=== PATIENT | male | born 1960 | race African-American/Black ===

== ENCOUNTER 2016-04-11 03:23 | Emergency (ER) | payer OTHER ==
[2016-04-11 04:31] LABS: Hematocrit 42 % (42-52); Mean Corpuscular HGB Conc 33 g/dl (31-36); Mean Corpuscular Hemoglobin 30 pg (27-31); Mean Corpuscular Volume 90 fL (80-94); Mean Platelet Volume 8 um3 (7.4-10.4); Red Cell Distribution Width 14 % (10.5-15); White Blood Count 9.2 10^3/ul (3.5-10.8)
[2016-04-11 04:42] LABS: BUN/Creatinine Ratio 12.3 (8-20); Calcium 9.1 mg/dL (8.6-10.3); EGFR African American 68.3 (>60); EGFR Non-African American 53.1 (>60); Globulin 3.1 g/dL (2-4); Magnesium 2.1 mg/dL (1.9-2.7); Potassium 3.4 mmol/L (3.5-5.0); Total Bilirubin 0.3 mg/dL (0.2-1.0); Total Protein 7.1 g/dL (6.4-8.9)
[2016-04-11 04:45] LABS: Troponin I 0.01 ng/mL (<0.04)
[2016-04-11 04:52] LABS: TSH (Thyroid Stimulating Horm) 3.54 mcIU/mL (0.34-5.60)
[2016-04-11 05:16] LABS: Urine Bilirubin Negative (Negative); Urine Glucose Negative (Negative); Urine Nitrite Negative (Negative)
[2016-04-11] MEDS ORDERED: Ketorolac INJ* 30 MG/ML 1 ML VIAL IV PUSH ONE (05:27)
[2016-04-11] MEDS ORDERED: Ondansetron INJ* 2 MG/ML VIAL IV ONE (05:27)
[2016-04-11] MEDS ORDERED: NS 0.9% 1000 ML* 1,000 ML IV ONE (05:27)
--- NOTE | 2016-04-11 07:51 | ED ---
Malick Pineda SooYoung, scribed for Saurabh Lopes MD on 04/11/16 at 0532 . Syncope/Near Syncope - HPI Summary HPI Summary: A 55 Y/O M PRESENTS TO ED AFTER SYNCOPAL EPISODE ONSET 0300. ACCORDING TO FRIEND , PT COLLAPSED AFTER URINATING AT ABOUT 0300. HE FELL AGAIN AND HIT HIS HEAD. PT DENIES RECENT ILLNESS. HE HAS STARTED A NEW MEDICATION AND TOOK THE FIRST DOSE AT APPROX 1800 YESTERDAY. HE THEN WENT TO GYM AND DID CARDIO FOR APPROX 1 HOUR. HE LAST AT 1700. PT SEES DR. ESQUIVEL. ASSOCIATED SX: FEVER, CHILLS, BODY ACHES, MORA, NAUSEA/VOMITING. DENIES SOB, TINGLING/NUMBNESS. PERT PMHX: ENLARGED PROSTATE, HTN, OCCASIONAL PALPITATIONS. PMHX: CARDIAC CATHERIZATION. HE FLEW BACK FROM [place] ONE WEEK AGO. - History Of Current Complaint Chief Complaint: EDSyncope Time Seen by Provider: 04/11/16 03:41 Hx Obtained From: Patient, Family/Baseball Glove Stuffer Onset/Duration: Sudden Onset, Resolved Activity At Onset: At Rest - AFTER URINATING Associated Head Trauma: Yes Associated Signs And Symptoms: Headache, Vomiting, Other - NAUSEA, FEVER, CHILLS , BODY ACHES. NEG: SOB, TINGLING/NUMBNESS - Allergies/Home Medications Allergies/Adverse Reactions: Allergies Allergy/AdvReac Type Severity Reaction Status Date / Time Shellfish Allergy Allergy See Comment Verified 06/28/15 10:24 BETA BLOCKERS AdvReac Intermediate bradycardia Uncoded 06/19/15 10:19 PMH/Surg Hx/FS Hx/Imm Hx Previously Healthy: Yes Endocrine/Hematology History: Denies: Hx Diabetes, Hx Thyroid Disease Cardiovascular History: Reports: Hx Hypertension Denies: Hx Pacemaker/ICD Respiratory History: Reports: Hx Asthma Denies: Hx Chronic Obstructive Pulmonary Disease (COPD) GI History: Denies: Hx Ulcer Sensory History: Denies: Hx Hearing Aid Neurological History: Reports: Other Neuro Impairments/Disorders - 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 Psychiatric History: Denies: Hx Panic Disorder - Surgical History Surgery Procedure, Year, and Place: CARDIAC CATH- 2004, Infectious Disease History: No Infectious Disease History: Denies: Hx Clostridium Difficile, Hx Hepatitis, Hx Human Immunodeficiency Virus (HIV), Hx Shingles, Hx Tuberculosis, Traveled Outside the [place] in Last 30 Days - Social History Occupation: Employed Full-time Lives: With Family - FRIEND Alcohol Use: None Hx Substance Use: No Substance Use Type: Reports: None Hx Tobacco Use: No Smoking Status (MU): Never Smoked Tobacco Review of Systems Positive: Fever, Chills Negative: Erythema Negative: Sore Throat Negative: Chest Pain Negative: Shortness Of Breath, Cough Positive: Vomiting, Nausea. Negative: Abdominal Pain Negative: dysuria, hematuria Positive: Myalgia - GENERAL BODY ACHES. Negative: Edema Negative: Rash Neurological: Other - NEG: DIZZINESS Positive: Headache, Syncope. Negative: Numbness All Other Systems Reviewed And Are Negative: Yes Physical Exam - Summary Physical Exam Summary: Constitutional: Well-developed, Well-nourished, Alert. (-) Distressed Skin: Warm, Dry HENT: Normocephalic; Atraumatic Eyes: Conjunctiva normal Neck: Musculoskeletal ROM normal neck. (-) JVD, (-) Stridor, (-) Tracheal deviation Cardio: Rhythm regular, rate normal, Heart sounds normal; Intact distal pulses; The pedal pulses are 2+ and symmetric. Radial pulses are 2+ and symmetric. (-) Murmur Pulmonary/Chest wall: Effort normal. (-) Respiratory distress, (-) Wheezes, (-) Rales Abd: Soft, (-) Tenderness, (-) Distension, (-) Guarding, (-) Rebound Musculoskeletal: (-) Edema Lymph: (-) Cervical adenopathy Neuro: Alert, Oriented x3 Psych: Mood and affect Normal Triage Information Reviewed: Yes Vital Signs On Initial Exam: Initial Vitals Temp Pulse Resp BP Pulse Ox 96.3 F 66 17 129/108 100 04/11/16 03:34 04/11/16 03:34 04/11/16 03:34 04/11/16 03:34 04/11/16 03:34 Vital Signs Reviewed: Yes Diagnostics - Vital Signs Vital Signs Temp Pulse Resp BP Pulse Ox 04/11/16 03:34 96.3 F 66 17 129/108 100 - Laboratory Lab Results: Lab Results 04/11/16 04/11/16 04/11/16 Range/Units 03:55 03:55 03:55 WBC 9.2 (3.5-10.8) 10^3/ul RBC 4.70 (4.0-5.4) 10^6/ul Hgb 14.0 (14.0-18.0) g/dl Hct 42 (42-52) % MCV 90 (80-94) fL MCH 30 (27-31) pg MCHC 33 (31-36) g/dl RDW 14 (10.5-15) % Plt Count 191 (150-450) 10^3/ul MPV 8 (7.4-10.4) um3 Neut % (Auto) 42.8 (38-83) % Lymph % (Auto) 43.6 (25-47) % [place] % (Auto) 9.3 H (1-9) % Eos % (Auto) 4.0 (0-6) % Baso % (Auto) 0.3 (0-2) % Absolute Neuts (auto) 4.0 (1.5-7.7) 10^3/ul Absolute Lymphs (auto) 4.0 (1.0-4.8) 10^3/ul Absolute Monos (auto) 0.9 H (0-0.8) 10^3/ul Absolute Eos (auto) 0.4 (0-0.6) 10^3/ul Absolute Basos (auto) 0 (0-0.2) 10^3/ul Absolute Nucleated RBC 0.02 10^3/ul Nucleated RBC % 0.3 Sodium 136 (133-145) mmol/L Potassium 3.4 L (3.5-5.0) mmol/L Chloride 103 (101-111) mmol/L Carbon Dioxide 24 (22-32) mmol/L Anion Gap 9 (2-11) mmol/L BUN 17 (6-24) mg/dL Creatinine 1.38 H (0.67-1.17) mg/dL Est GFR ( Amer) 68.3 (>60) Est GFR (Non-Af Amer) 53.1 (>60) BUN/Creatinine Ratio 12.3 (8-20) Glucose 186 H (70-100) mg/dL Lactic Acid 2.6 H* (0.5-2.0) mmol/L Calcium 9.1 (8.6-10.3) mg/dL Magnesium 2.1 (1.9-2.7) mg/dL Total Bilirubin 0.30 (0.2-1.0) mg/dL AST 21 (13-39) U/L ALT 21 (7-52) U/L Alkaline Phosphatase 55 (34-104) U/L Troponin I 0.01 (<0.04) ng/mL Total Protein 7.1 (6.4-8.9) g/dL Albumin 4.0 (3.2-5.2) g/dL Globulin 3.1 (2-4) g/dL Albumin/Globulin Ratio 1.3 (1-3) TSH 3.54 (0.34-5.60) mcIU/mL Urine Color Urine Appearance Urine pH (5-9) Ur Specific [place] (1.010-1.030) Urine Protein (Negative) Urine Ketones (Negative) Urine Blood (Negative) Urine Nitrate (Negative) Urine Bilirubin (Negative) Urine Urobilinogen (Negative) Ur Leukocyte Esterase (Negative) Urine Glucose (Negative) Urine Ascorbic Acid (Negative) 04/11/16 Range/Units 04:50 WBC (3.5-10.8) 10^3/ul RBC (4.0-5.4) 10^6/ul Hgb (14.0-18.0) g/dl Hct (42-52) % MCV (80-94) fL MCH (27-31) pg MCHC (31-36) g/dl RDW (10.5-15) % Plt Count (150-450) 10^3/ul MPV (7.4-10.4) um3 Neut % (Auto) (38-83) % Lymph % (Auto) (25-47) % [place] % (Auto) (1-9) % Eos % (Auto) (0-6) % Baso % (Auto) (0-2) % Absolute Neuts (auto) (1.5-7.7) 10^3/ul Absolute Lymphs (auto) (1.0-4.8) 10^3/ul Absolute Monos (auto) (0-0.8) 10^3/ul Absolute Eos (auto) (0-0.6) 10^3/ul Absolute Basos (auto) (0-0.2) 10^3/ul Absolute Nucleated RBC 10^3/ul Nucleated RBC % Sodium (133-145) mmol/L Potassium (3.5-5.0) mmol/L Chloride (101-111) mmol/L Carbon Dioxide (22-32) mmol/L Anion Gap (2-11) mmol/L BUN (6-24) mg/dL Creatinine (0.67-1.17) mg/dL Est GFR ( Amer) (>60) Est GFR (Non-Af Amer) (>60) BUN/Creatinine Ratio (8-20) Glucose (70-100) mg/dL Lactic Acid (0.5-2.0) mmol/L Calcium (8.6-10.3) mg/dL Magnesium (1.9-2.7) mg/dL Total Bilirubin (0.2-1.0) mg/dL AST (13-39) U/L ALT (7-52) U/L Alkaline Phosphatase (34-104) U/L Troponin I (<0.04) ng/mL Total Protein (6.4-8.9) g/dL Albumin (3.2-5.2) g/dL Globulin (2-4) g/dL Albumin/Globulin Ratio (1-3) TSH (0.34-5.60) mcIU/mL Urine Color Yellow Urine Appearance Clear Urine pH 5.0 (5-9) Ur Specific [place] 1.018 (1.010-1.030) Urine Protein Negative (Negative) Urine Ketones Negative (Negative) Urine Blood Negative (Negative) Urine Nitrate Negative (Negative) Urine Bilirubin Negative (Negative) Urine Urobilinogen Negative (Negative) Ur Leukocyte Esterase Negative (Negative) Urine Glucose Negative (Negative) Urine Ascorbic Acid * H (Negative) Result Diagrams: 04/11/16 03:55 04/11/16 03:55 Lab Statement: Any lab studies that have been ordered have been reviewed, and results considered in the medical decision making process. Course/Dx - Diagnoses Provider Diagnoses: Micturition syncope - Physician Notifications Discussed Care Of Patient With: dr riggs, he will f/u EKG/troponin. If repeat EKG/troponin neg and no sx, recc discharge, discontinue alpha renée Discharge - Discharge Plan Condition: Stable Disposition: OTHER Discharge Disposition Comment: signed out to dr. riggs pending repeat troponin/ EKG The documentation as recorded by the Malick viveros SooYoung accurately reflects the service I personally performed and the decisions made by , Saurabh Lopes MD.
--- NOTE | 2016-04-11 07:54 | RAD ---
Indication: Syncope. CT of the brain was performed without IV contrast. Ventricular structures are midline. No midline shift is noted. The extraction spaces are unremarkable. There is no evidence of intracranial mass or hemorrhage. No other high or low density lesions are identified. The bony calvaria, mastoid air cells and paranasal sinuses are otherwise unremarkable. IMPRESSION: There is no intracranial mass or hemorrhage noted.
[2016-04-11 09:41] VITALS: BP 128/62
--- NOTE | 2016-04-12 07:54 | CONSULT ---
Consult Consult: Mr. Salazar was turned over to me by Dr. Lopes at change of shift awaiting a second troponin after a syncopal episode. The trop was negative and he reported no C/O to me. He felt fine and was relieved to be going home. He was discharged in stable condition.
== END 2016-04-11 09:40 ==
LOC: ED 03:23
DX: R55 Syncope and collapse (principal); R51 Headache; R11.2 Nausea with vomiting, unspecified; R50.9 Fever, unspecified
CPT/HCPCS: 36415; 70450; 80053; 81003; 83605; 83735; 84443; 84484; 85025; 87502; 93005; 96374; 96375; 99282; J1885; J2405

== ENCOUNTER 2016-12-16 07:55 | Emergency (ER) | payer OTHER ==
[2016-12-16] MEDS ORDERED: Aspirin Low Dose CHEW TAB* 81 MG PO ONE (08:13)
--- NOTE | 2016-12-16 08:41 | RAD ---
HISTORY: High heart rate, weakness COMPARISONS: December 08, 2009 VIEWS: 1: frontal portable view of the chest at 8:30 AM FINDINGS: LINES AND TUBES: None. CARDIOMEDIASTINAL SILHOUETTE: The cardiomediastinal silhouette is normal for portable technique. PLEURA: The costophrenic angles are sharp. No pleural abnormalities are noted. LUNG PARENCHYMA: The lungs are clear. ABDOMEN: The upper abdomen is clear. There is no subphrenic gas. BONES AND SOFT TISSUES: No bone or soft tissue abnormalities are noted. IMPRESSION: NO ACTIVE CARDIOPULMONARY DISEASE.
[2016-12-16 09:02] LABS: Hematocrit 44 % (42-52); Hemoglobin 14.7 g/dl (14.0-18.0); Mean Corpuscular HGB Conc 34 g/dl (31-36); Mean Corpuscular Hemoglobin 30 pg (27-31); Mean Corpuscular Volume 89 fL (80-94); Mean Platelet Volume 8 um3 (7.4-10.4); Red Blood Count 4.89 10^6/ul (4.0-5.4); Red Cell Distribution Width 14 % (10.5-15); White Blood Count 8.7 10^3/ul (3.5-10.8)
[2016-12-16 09:04] LABS: Comments Flag Yes
[2016-12-16 09:19] LABS: Albumin 4.2 g/dL (3.2-5.2); BUN/Creatinine Ratio 8.7 (8-20); Calcium 9.1 mg/dL (8.6-10.3); EGFR African American 68.1 (>60); EGFR Non-African American 52.9 (>60); Globulin 3.2 g/dL (2-4); Potassium 3.7 mmol/L (3.5-5.0); Total Bilirubin 0.6 mg/dL (0.2-1.0); Total Protein 7.4 g/dL (6.4-8.9)
[2016-12-16 10:12] LABS: Urine Bilirubin Negative (Negative); Urine Glucose Negative (Negative); Urine Nitrite Negative (Negative)
[2016-12-16] MEDS ORDERED: Iodixanol* (CONTRAST) 320 MG/ML 100 ML SDV IV ONE (10:34)
--- NOTE | 2016-12-16 11:30 | RAD ---
INDICATION: Chest pain. Short of breath. Evaluate for pulmonary embolus. COMPARISON: Chest x-ray December 16, 2016 TECHNIQUE: Axial source images were obtained from the thoracic inlet to the hemidiaphragms following administration of [address] angiographic technique was utilized. Coronal and sagittal reconstructed images were acquired. CHEST FINDINGS: Neck/thyroid: The visualized neck to include the thyroid appear normal. Chest wall: There are no acute abnormalities of the bony thorax or chest wall. There is no supraclavicular, infraclavicular, or axillary lymphadenopathy. Lungs : There are no pulmonary parenchymal masses or infiltrates. The pulmonary interstitium appears normal. There are no endobronchial lesions. Cardiomediastinal structures: There is no CT evidence of acute pulmonary embolic disease. The heart is normal in size. There is no pericardial effusion. There is no evidence of aortic aneurysm or dissection. There is no mediastinal or hilar adenopathy. The esophagus appears normal. Pleura : There are no pleural-based masses or effusions. Other: None. IMPRESSION: NO CT EVIDENCE OF ACUTE PULMONARY EMBOLIC DISEASE. LUNGS CLEAR.
[2016-12-16 12:25] LABS: TSH (Thyroid Stimulating Horm) 1.82 mcIU/mL (0.34-5.60)
[2016-12-16 12:32] LABS: Free T4 0.61 ng/dL (0.61-1.12)
[2016-12-16] MEDS ORDERED: NS 0.9% 1000 ML* 1,000 ML IV ONE (13:43)
[2016-12-16 15:20] VITALS: BP 135/74
[2016-12-17 23:07] LABS: B garinii/B afzelii PCR Negative (Negative); B mayonii PCR Negative (Negative)
--- NOTE | 2016-12-19 08:52 | PN ---
Progress Note - Progress Note Date of Service: 12/17/16 Note: Stool culture to grown Campylobacter Jejuni Patient was not placed on medication prior to discharge, as we were awaiting results Patient is called and left message ta 8:45am on 12/19/16 informing of results and prescription Levaquin 500mg daily for 5 days sent to his pharmacy Nothing further at this time. Barb Mendez PA-C
--- NOTE | 2016-12-19 14:52 | ED ---
Jessica Pineda Thomas, scribed for Saurabh Lopes MD on 12/16/16 at 0817 . Palpitations / Dysrhythmia - HPI Summary HPI Summary: The pt is a 56 y/o M presenting to the ED c/o palpitations characterized as fast that began this AM. Pt additionally c/o generalized malaise (onset yesterday), nausea, diarrhea (yesterday), neck pain (from a crook in my neck when I slept), and arthralgia. The patient did not sleep well last night. Pt denies CP, SOB, dizziness, lightheadedness, F/S/C, sore throat, leg pain, and leg swelling. He has been eating and drinking well. He has a Hx of a herniated disc on the right side and he is on physical therapy. He is on Diltiazem for HTN and his dose was recently decreased about a month ago. He has been taking his medication as directed. He says that his medication makes him chronically unsteady on his feet. The patient says that is not under significant stress and he does not have a history of panic attacks. However, per his partner, he does get anxious. He is accompanied by his partner Hayden. His private tutors and teachers is Dr. Almaguer and his urologist is Dr. Latham. 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 He travelled two weeks ago. He does not have a Hx of DVT. He denies tick bites - History of Current Complaint Chief Complaint: EDDysrhythmPalp Hx Obtained From: Patient, Family/Shovel Operator - partner Hayden is in the room Onset/Duration: Lasting Hours - onset this AM, Still Present Timing: Constant Character: Fast Aggravating: Nothing Alleviating: Nothing - Allergy/Home Medications Allergies/Adverse Reactions: Allergies Allergy/AdvReac Type Severity Reaction Status Date / Time Shellfish Allergy Allergy See Comment Verified 06/28/15 10:24 BETA BLOCKERS AdvReac Intermediate bradycardia Uncoded 06/19/15 10:19 PMH/Surg Hx/FS Hx/Imm Hx Previously Healthy: No Endocrine/Hematology History: Denies: Hx Diabetes, Hx Thyroid Disease Cardiovascular History: Reports: Hx Hypertension Denies: Hx Pacemaker/ICD Respiratory History: Reports: Hx Asthma Denies: Hx Chronic Obstructive Pulmonary Disease (COPD) GI History: Denies: Hx Ulcer Sensory History: Denies: Hx Hearing Aid Neurological History: Reports: Other Neuro Impairments/Disorders - 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 Psychiatric History: Denies: Hx Panic Disorder - Surgical History Surgery Procedure, Year, and Place: CARDIAC CATH- 2004, Infectious Disease History: No Infectious Disease History: Denies: Hx Clostridium Difficile, Hx Hepatitis, Hx Human Immunodeficiency Virus (HIV), Hx Shingles, Hx Tuberculosis, Traveled Outside the [place] in Last 30 Days - Family History Known Family History: Positive: Diabetes - Social History Alcohol Use: None Hx Substance Use: No Substance Use Type: Reports: None Hx Tobacco Use: No Smoking Status (MU): Never Smoked Tobacco Review of Systems Positive: Other - Generalized malaise (onset yesterday). Negative: Fever, Chills, Skin Diaphoresis Negative: Erythema - eyes Negative: Sore Throat Positive: Palpitations - characterized as fast that began this AM. Negative: Chest Pain Negative: Shortness Of Breath, Cough Positive: Diarrhea - yesterday, Nausea. Negative: Abdominal Pain, Vomiting Negative: discharge, hematuria Positive: Arthralgia, Other - Neck pain ("from a crook in my neck"); NEGATIVE: leg pain. Negative: Myalgia, Edema - legs Negative: Rash Neurological: Other - NEGATIVE: dizziness, lightheadedness All Other Systems Reviewed And Are Negative: Yes Physical Exam - Summary Physical Exam Summary: Constitutional: Well-developed, Well-nourished, Alert. (-) Distressed Skin: Warm, Dry HENT: Normocephalic; Atraumatic Eyes: Conjunctiva normal Neck: Musculoskeletal ROM normal neck. (-) JVD, (-) Stridor, (-) Tracheal deviation Cardio: Rhythm regular, rate normal, Heart sounds normal; Intact distal pulses; The pedal pulses are 2+ and symmetric. Radial pulses are 2+ and symmetric. (-) Murmur Pulmonary/Chest wall: Effort normal. (-) Respiratory distress, (-) Wheezes, (-) Rales Abd: Soft, (-) Tenderness, (-) Distension, (-) Guarding, (-) Rebound Musculoskeletal: (-) Edema Lymph: (-) Cervical adenopathy Neuro: Alert, Oriented x3 Psych: Mood and affect Normal Triage Information Reviewed: Yes Vital Signs On Initial Exam: Initial Vitals Temp Pulse Resp BP Pulse Ox 98.2 F 107 20 151/83 98 12/16/16 07:56 12/16/16 07:56 12/16/16 07:56 12/16/16 07:56 12/16/16 07:56 Vital Signs Reviewed: Yes - [place] Coma Scale Coma Scale Total: 15 Diagnostics - Vital Signs Vital Signs Temp Pulse Resp BP Pulse Ox 12/16/16 08:05 94 14 99 12/16/16 08:04 130/85 12/16/16 07:56 98.2 F 107 20 151/83 98 - Laboratory Result Diagrams: 12/16/16 08:39 12/16/16 08:39 Lab Statement: Any lab studies that have been ordered have been reviewed, and results considered in the medical decision making process. - Radiology CXR Xray Interpretation: No Acute Changes - CXR shows no active cardiopulmonary disease. ED physician has reviewed this radiology report and agrees. Radiology Interpretation Completed By: Radiologist - CT CTA Chest CT Interpretation: No Acute Changes - NO CT EVIDENCE OF ACUTE PULMONARY EMBOLIC DISEASE. LUNGS CLEAR. ED physician has reviewed this radiology report and agrees. CT Interpretation Completed By: Radiologist - EKG 08:19 Cardiac Rate: NL - 93 BPM EKG Interpretation: Sinus rhythm. No STEMI. No ectopy. Re-Evaluation - Re-Evaluation First Eval Re-Evaluation Time: 13:49 Change: Unchanged Comment: The patient noticed his heart racing when he stands up. Therefore, we will give him some IV fluids. Second Eval Re-Evaluation Time: 15:30 Change: Improved Comment: The patient is no longer orthostatic. Course/Dx - Course Assessment/Plan: The pt is a 56 y/o M presenting to the ED c/o palpitations characterized as fast that began this AM. Pt additionally c/o generalized malaise (onset yesterday), nausea, diarrhea (yesterday), neck pain (from a crook in my neck when I slept), and arthralgia. The patient did not sleep well last night. Pt denies CP, SOB, dizziness, lightheadedness, F/S/C, sore throat, leg pain, and leg swelling. He has been eating and drinking well. He has a Hx of a herniated disc on the right side and he is on physical therapy. He is on Diltiazem for HTN and his dose was recently decreased about a month ago. He has been taking his medication as directed. He says that his medication makes him chronically unsteady on his feet. The patient says that is not under significant stress and he does not have a history of panic attacks. However, per his partner, he does get anxious. He is accompanied by his partner Hayden. His private tutors and teachers is Dr. Almaguer and his urologist is Dr. Latham. 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 He travelled two weeks ago. He does not have a Hx of DVT. He denies tick bites. At re-evaluation at 13 :45, the patient noticed his heart racing when he stands up. Therefore, we will give him some IV fluids. At re-evaluatoin at 15:30, the patient is no longer orthostatic. In the ED course the patient was given ASA. Bloodwork shows D- dimer 242, creatinine 1.38, troponin 0.00. UA is negative. EKG at 08:19 shows sinus rhythm at 93 BPM, no STEMI, no ectopy. CXR shows no active cardiopulmonary disease. CTA chest shows NO CT EVIDENCE OF ACUTE PULMONARY EMBOLIC DISEASE. LUNGS CLEAR. ED physician has reviewed this radiology report and agrees. Patient is diagnosed with diarrhea, dehydration, and viral syndrome. Patient will be discharged home with follow up by PCP in two days. Patient is agreeable to this plan. - Diagnoses Provider Diagnoses: Diarrhea, Dehydration, Viral syndrome Discharge - Discharge Plan Condition: Stable Disposition: HOME Patient Education Materials: Acute Diarrhea (ED), Dehydration (ED), Viral Syndrome (ED) Referrals: Orlando Branch MD [Primary Care Provider] - 2 Days Additional Instructions: Follup up with your primary care provider in 2-3 days. Return to the emergency department for any changing or worsening symptoms. The documentation as recorded by the Jessica viveros Thomas accurately reflects the service I personally performed and the decisions made by me, Saurabh Lopes MD.
== END 2016-12-16 15:41 | disposition home or self-care (01) ==
LOC: ED 07:55
DX: R19.7 Diarrhea, unspecified (principal); E86.0 Dehydration; B34.9 Viral infection, unspecified; R00.2 Palpitations
CPT/HCPCS: 36415; 71010; 71275; 80053; 81003; 83605; 84439; 84443; 84484; 85025; 85379; 87045; 87046; 87077; 87476; 87502; 87798; 87899; 93005; 99283; A9270-GY; Q9967

== ENCOUNTER 2017-09-03 12:01 | Emergency (ER) | payer OTHER ==
[2017-09-03 12:52] LABS: ABS Basophils 0.1 10^3/ul (0-0.2); ABS Eosinophils 0.2 10^3/ul (0-0.6); ABS Lymphocytes 1.9 10^3/ul (1.0-4.8); ABS Monocytes 0.6 10^3/ul (0-0.8); ABS Neutrophils 2.5 10^3/ul (1.5-7.7); ABS Nucleated RBC 0 10^3/ul; Eosinophil % 4.3 % (0-6); Hematocrit 45 % (42-52); Hemoglobin 15.3 g/dl (14.0-18.0); Mean Corpuscular HGB Conc 34 g/dl (31-36); Mean Corpuscular Hemoglobin 30 pg (27-31); Mean Corpuscular Volume 88 fL (80-94); Mean Platelet Volume 7.9 um3 (7.4-10.4); Nucleated Red Blood Cells % 0.1; Platelet Count 204 10^3/ul (150-450); Red Blood Count 5.08 10^6/ul (4.00-5.40); Red Cell Distribution Width 14 % (10.5-15); White Blood Count 5.3 10^3/ul (3.5-10.8)
[2017-09-03 13:10] LABS: EGFR Non-African American 53.2 (>60)
[2017-09-03 13:16] LABS: Urine Appearance Clear; Urine Blood Negative (Negative); Urine Color Yellow; Urine Ketones Negative (Negative); Urine Protein 1+(30 mg/dL) (Negative); Urine Specific Gravity 1.016 (1.010-1.030); Urine Urobilinogen Negative (Negative)
--- NOTE | 2017-09-03 13:59 | RAD ---
INDICATION: Chest pain, tachycardia. Asthma. COMPARISON: December 16, 2016 CT. TECHNIQUE: Dual energy PA and routine lateral views of the chest were obtained. REPORT: No focal pulmonary lesion, compelling alveolar consolidation, pleural effusion, pneumothorax. The heart, pulmonary vasculature, and mediastinal contours are unremarkable. Unremarkable soft tissue contours and osseous structures. IMPRESSION: No evidence for acute intrathoracic disease.
[2017-09-03 14:28] VITALS: BP 133/77
--- NOTE | 2017-09-03 16:23 | ED ---
Rodrigo Pineda Stephanie, scribed for Víctor Christianson MD on 09/03/17 at 1232 . HPI Cardiac - HPI Summary HPI Summary: The pt is a 57 y/o M presenting to the ED with c/o rapid HR that began a few days ago. He states his HR elevated to 137 BPM when he walks but decreases when he is at rest. He denies N/V, lightheadedness, SOB and CP. - History of Current Complaint Chief Complaint: EDDysrhythmPalp Stated Complaint: RAPID HEART RATE Time Seen by Provider: 09/03/17 12:19 Hx Obtained From: Patient Onset/Duration: Started Days Ago, Still Present Timing: Intermittent Current Severity: Mild Pain Intensity: 3 Pain Scale Used: 0-10 Numeric Chest Pain Radiates: No Character: Fast Aggravating Factor(s): Exertion Alleviating Factor(s): Rest Associated Signs and Symptoms: Negative: Chest Pain, Shortness of Breath, Lightheadedness, Nausea, Vomiting - Allergy/Home Medications Allergies/Adverse Reactions: Allergies Allergy/AdvReac Type Severity Reaction Status Date / Time shellfish derived Allergy Itching Verified 09/03/17 12:15 beta renée Allergy Bradycardia Uncoded 09/03/17 12:15 Home Medications: Home Medications Aspirin EC TAB* [Ecotrin EC Low Dose 81 MG*] 81 mg PO DAILY 09/03/17 [History Confirmed 09/03/17] Cranberry [Cranberry] 400 mg PO DAILY 09/03/17 [History Confirmed 09/03/17] Diltiazem CD CAP* [Cardizem CD CAP*] 180 mg PO DAILY 09/03/17 [History Confirmed 09/03/17] Multivitamins/Minerals TAB* [Theragran/minerals TAB*] 1 tab PO DAILY 09/03/17 [ History Confirmed 09/03/17] Moody-3 Fatty Acids (Nf) [Fish Oil (NF)] 1,000 mg PO DAILY 09/03/17 [History Confirmed 09/03/17] Potassium Chlor TAB* [Klor Con ER TAB*] 20 meq PO DAILY 09/03/17 [History Confirmed 09/03/17] Ubidecarenone [Coq10] 100 mg PO DAILY 09/03/17 [History Confirmed 09/03/17] Valsartan TAB* [Diovan TAB*] 160 mg PO DAILY 09/03/17 [History Confirmed ] PMH/Surg Hx/FS Hx/Imm Hx Endocrine/Hematology History: Denies: Hx Diabetes, Hx Thyroid Disease Cardiovascular History: Reports: Hx Hypertension Denies: Hx Pacemaker/ICD Respiratory History: Reports: Hx Asthma Denies: Hx Chronic Obstructive Pulmonary Disease (COPD) GI History: Denies: Hx Ulcer History: Denies: Hx Renal Disease Sensory History: Denies: Hx Hearing Aid Neurological History: Reports: Other Neuro Impairments/Disorders - 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 Psychiatric History: Denies: Hx Panic Disorder - Surgical History Surgery Procedure, Year, and Place: CARDIAC CATH- 2004, Infectious Disease History: No Infectious Disease History: Denies: Hx Clostridium Difficile, Hx Hepatitis, Hx Human Immunodeficiency Virus (HIV), Hx Shingles, Hx Tuberculosis, Traveled Outside the [place] in Last 30 Days - Family History Known Family History: Negative: Renal Disease - Social History Occupation: Employed Full-time Lives: Alone Alcohol Use: None Hx Substance Use: No Substance Use Type: Reports: None Hx Tobacco Use: No Smoking Status (MU): Never Smoked Tobacco Have You Smoked in the Last Year: No Review of Systems Negative: Fever Positive: Other - rapid HR. Negative: Chest Pain Negative: Shortness Of Breath Negative: Vomiting, Nausea Neurological: Negative - lightheadedness All Other Systems Reviewed And Are Negative: Yes Physical Exam - Summary Physical Exam Summary: VITAL SIGNS: Reviewed. GENERAL: Patient is a well-developed and nourished MALE who is lying comfortable in the stretcher. Patient is not in any acute respiratory distress. HEAD AND FACE: No signs of trauma. No ecchymosis, hematomas or skull depressions. No sinus tenderness. EYES: PERRLA, EOMI x 2, No injected conjunctiva, no nystagmus. EARS: Hearing grossly intact. Ear canals and tympanic membranes are within normal limits. MOUTH: Oropharynx within normal limits. NECK: Supple, trachea is midline, no adenopathy, no JVD, no carotid bruit, no c- spine tenderness, neck with full ROM. CHEST: Symmetric, no tenderness at palpation LUNGS: Clear to auscultation bilaterally. No wheezing or crackles. CVS: Regular rate and rhythm, S1 and S2 present, no murmurs or gallops appreciated. ABDOMEN: Soft, non-tender. No signs of distention. No rebound no guarding, and no masses palpated. Bowel sounds are normal. EXTREMITIES: FROM in all major joints, no edema, no cyanosis or clubbing. NEURO: Alert and oriented x 3. No acute neurological deficits. Speech is normal and follows commands. SKIN: Dry and warm Triage Information Reviewed: Yes Vital Signs On Initial Exam: Initial Vitals Temp Pulse Resp BP Pulse Ox 97.5 F 91 16 149/96 96 09/03/17 12:11 09/03/17 12:11 09/03/17 12:11 09/03/17 12:11 09/03/17 12:11 Vital Signs Reviewed: Yes Diagnostics - Vital Signs Vital Signs Temp Pulse Resp BP Pulse Ox 09/03/17 12:11 97.5 F 91 16 149/96 96 - Laboratory Lab Results: Lab Results 09/03/17 09/03/17 09/03/17 Range/Units 12:46 12:46 12:46 WBC 5.3 (3.5-10.8) 10^3/ul RBC 5.08 (4.00-5.40) 10^6/ul Hgb 15.3 (14.0-18.0) g/dl Hct 45 (42-52) % MCV 88 (80-94) fL MCH 30 (27-31) pg MCHC 34 (31-36) g/dl RDW 14 (10.5-15) % Plt Count 204 (150-450) 10^3/ul MPV 7.9 (7.4-10.4) um3 Neut % (Auto) 46.9 (38-83) % Lymph % (Auto) 37.0 (25-47) % [place] % (Auto) 10.8 H (0-7) % Eos % (Auto) 4.3 (0-6) % Baso % (Auto) 1.0 (0-2) % Absolute Neuts (auto) 2.5 (1.5-7.7) 10^3/ul Absolute Lymphs (auto) 1.9 (1.0-4.8) 10^3/ul Absolute Monos (auto) 0.6 (0-0.8) 10^3/ul Absolute Eos (auto) 0.2 (0-0.6) 10^3/ul Absolute Basos (auto) 0.1 (0-0.2) 10^3/ul Absolute Nucleated RBC 0 10^3/ul Nucleated RBC % 0.1 D-Dimer, Quantitative (Less Than 230) ng/mL Sodium 139 (139-145) mmol/L Potassium 3.6 (3.5-5.0) mmol/L Chloride 104 (101-111) mmol/L Carbon Dioxide 29 (22-32) mmol/L Anion Gap 6 (2-11) mmol/L BUN 12 (6-24) mg/dL Creatinine 1.37 H (0.67-1.17) mg/dL Est GFR ( Amer) 68.4 (>60) Est GFR (Non-Af Amer) 53.2 (>60) BUN/Creatinine Ratio 8.8 (8-20) Glucose 151 H (70-100) mg/dL Lactic Acid 1.4 (0.5-2.0) mmol/L Calcium 9.4 (8.6-10.3) mg/dL Magnesium 2.3 (1.9-2.7) mg/dL Total Bilirubin 0.40 (0.2-1.0) mg/dL AST 23 (13-39) U/L ALT 21 (7-52) U/L Alkaline Phosphatase 76 (34-104) U/L CK-MB (CK-2) 2.7 (0.6-6.3) ng/mL Troponin I 0.00 (<0.04) ng/mL Total Protein 7.5 (6.4-8.9) g/dL Albumin 4.0 (3.2-5.2) g/dL Globulin 3.5 (2-4) g/dL Albumin/Globulin Ratio 1.1 (1-3) TSH 2.95 (0.34-5.60) mcIU/mL Urine Color Urine Appearance Urine pH (5-9) Ur Specific [place] (1.010-1.030) Urine Protein (Negative) Urine Ketones (Negative) Urine Blood (Negative) Urine Nitrate (Negative) Urine Bilirubin (Negative) Urine Urobilinogen (Negative) Ur Leukocyte Esterase (Negative) Urine WBC (Auto) (Absent) Urine RBC (Auto) (Absent) Urine Bacteria (Absent) Urine Glucose (Negative) 09/03/17 09/03/17 Range/Units 12:46 13:05 WBC (3.5-10.8) 10^3/ul RBC (4.00-5.40) 10^6/ul Hgb (14.0-18.0) g/dl Hct (42-52) % MCV (80-94) fL MCH (27-31) pg MCHC (31-36) g/dl RDW (10.5-15) % Plt Count (150-450) 10^3/ul MPV (7.4-10.4) um3 Neut % (Auto) (38-83) % Lymph % (Auto) (25-47) % [place] % (Auto) (0-7) % Eos % (Auto) (0-6) % Baso % (Auto) (0-2) % Absolute Neuts (auto) (1.5-7.7) 10^3/ul Absolute Lymphs (auto) (1.0-4.8) 10^3/ul Absolute Monos (auto) (0-0.8) 10^3/ul Absolute Eos (auto) (0-0.6) 10^3/ul Absolute Basos (auto) (0-0.2) 10^3/ul Absolute Nucleated RBC 10^3/ul Nucleated RBC % D-Dimer, Quantitative < 200 (Less Than 230) ng/mL Sodium (139-145) mmol/L Potassium (3.5-5.0) mmol/L Chloride (101-111) mmol/L Carbon Dioxide (22-32) mmol/L Anion Gap (2-11) mmol/L BUN (6-24) mg/dL Creatinine (0.67-1.17) mg/dL Est GFR ( Amer) (>60) Est GFR (Non-Af Amer) (>60) BUN/Creatinine Ratio (8-20) Glucose (70-100) mg/dL Lactic Acid (0.5-2.0) mmol/L Calcium (8.6-10.3) mg/dL Magnesium (1.9-2.7) mg/dL Total Bilirubin (0.2-1.0) mg/dL AST (13-39) U/L ALT (7-52) U/L Alkaline Phosphatase (34-104) U/L CK-MB (CK-2) (0.6-6.3) ng/mL Troponin I (<0.04) ng/mL Total Protein (6.4-8.9) g/dL Albumin (3.2-5.2) g/dL Globulin (2-4) g/dL Albumin/Globulin Ratio (1-3) TSH (0.34-5.60) mcIU/mL Urine Color Yellow Urine Appearance Clear Urine pH 7.0 (5-9) Ur Specific [place] 1.016 (1.010-1.030) Urine Protein 1+(30 mg/dl) A (Negative) Urine Ketones Negative (Negative) Urine Blood Negative (Negative) Urine Nitrate Negative (Negative) Urine Bilirubin Negative (Negative) Urine Urobilinogen Negative (Negative) Ur Leukocyte Esterase Negative (Negative) Urine WBC (Auto) Absent (Absent) Urine RBC (Auto) Trace(0-2/hpf) (Absent) Urine Bacteria Absent (Absent) Urine Glucose Negative (Negative) Result Diagrams: 09/03/17 12:46 09/03/17 12:46 Lab Statement: Any lab studies that have been ordered have been reviewed, and results considered in the medical decision making process. - Radiology CXR Xray Interpretation: No Acute Changes Radiology Interpretation Completed By: Radiologist - No evidence for acute intrathoracic disease. ED physician has reviewed this report. - EKG 12:18 Cardiac Rate: NL EKG Rhythm: Sinus Rhythm - [address] Segment: Normal EKG Interpretation: no ST elevations EKG Comparison: No Significant Change - similar to 12/16/16 Disposition - Course Assessment/Plan: Blood tests without any significant abnormality. EKG is a normal sinus rhythm without any arrhythmia. TSH is normal. Since I did not find any abnormalities will be discharged the patient home with follow-up with PCP. Patient may benefit from a Holter monitor which will be provided with the PCP. I discussed all the findings and test results with the patient. Patient was instructed to return to the emergency room immediately if any of the symptoms return or worsens. Plan of care was discussed with the patient and understands and agrees. All questions were answered at patient satisfaction. There were no further complaints or concerns. Lung exam before discharge: CTA B /L. Good air exchange. No wheezing or crackles heard. CVS: S1 and S2 present. No murmurs appreciated. Patient is alert and oriented x 3. Patient is hemodynamically stable. Patient will be discharged home with follow up PCP in the next 2-3 days - Differential Dx - Cardiopulmonary Differential Diagnoses - Cardiopulmonary: Atrial Fibrillation, Atrial Flutter, Paroxysmal SVT, Paroxysmal VT - Diagnoses Provider Diagnoses: Palpitations Discharge - Sign-Out/Discharge Documenting (check all that apply): Discharge/Admit/Transfer - Discharge - Discharge Plan Condition: Stable Disposition: HOME Patient Education Materials: Heart Palpitations (ED) Referrals: Orlando Branch MD [Primary Care Provider] - 3 Days Additional Instructions: Return to the ED for new or worsening symptoms. - Billing Disposition and Condition Condition: STABLE Disposition: Home The documentation as recorded by the Rodrigo viveros Stephanie accurately reflects the service I personally performed and the decisions made by Sammy julio Walter, MD.
== END 2017-09-03 14:27 | disposition home or self-care (01) ==
LOC: ED 12:01
DX: R00.2 Palpitations (principal); I10 Essential (primary) hypertension
CPT/HCPCS: 36415; 71046; 80053; 81003; 81015; 82553; 83605; 83735; 84443; 84484; 85025; 85379; 93005; 99282

== ENCOUNTER 2018-08-30 19:16 | Emergency (ER) | payer OTHER ==
--- OUTSIDE RECORDS SUMMARY | 2018-08-30 19:34 | XMS REPORT | Continuity of Care Document ---
:1960 External Reference #:[id number] Author Name Jose J Weineritlyn Care Team Providers Name Role Phone Orlando Branch MD Primary Care Physician Unavailable Payers Date Identification Numbers Payment Provider Subscriber Policy Number: [id number] [employer] Shanique Salazar Group Number: [id number] [address] PayID: [id number] [place] [address] Expires: 2006 Policy Number: [id number] [employer] Shanique Salazar Group Number: [id number] [address] PayID: [id number] [place] [address] Problems Active Problems Provider Date Chest pain Cass Pathak N.P. Onset: 05/02/2011 Benign essential hypertension Neville Almaguer M.D. Onset: 01/03/2013 Palpitations Neville Almaguer M.D. Onset: 01/03/2013 Mitral valve disorder Neville Almaguer M.D. Onset: 01/25/2013 Pure hypercholesterolemia Neville Almaguer M.D. Onset: 07/25/2013 Family History Date Family Member(s) Observation Comments Father Unknown Father due to Stroke () Mother Diabetes Type I Mother due to Diabetes () Siblings 8 3 sisters and 5 brothers Social History Type Date Description Comments Sex Unknown Marital Status Significant Other Lives With Male Partner Occupation Currently Working Tobacco Use Start: Unknown Never Smoked Cigarettes Smoking Status Reviewed: 05/15/19 Never Smoked Cigarettes ETOH Use Denies alcohol use Tobacco Use Start: Unknown Patient has never smoked Recreational Drug Use Never Used Drugs Exercise Type/Frequency Negative For Exercises 4 times a week regularly Allergies, Adverse Reactions, Alerts Active Allergies Reaction Severity Comments Date pravachol. fatigue 12/01/2006 betablocker shakiness, elevated bps 03/10/2011 At[place]and shakiness, elevated bps 03/10/2011 Alfuzosin syncope 04/17/2016 Inactive Allergies NKDA 11/26/2005 Medications Active Medications SIG Qnty Indications Ordering Provider Date Olmesartan Medoxomil take 2 tablet by 180tabs Neville Moore 04/09/2018 mouth every day Yolie Almaguer 5mg Tablets Cardizem CD 1 by mouth every 30caps I10 Sabina Brown, 07/31/2017 180mg Caps day N.P. ER 24HR Potassium Chloride ER 2 by mouth every 90tabs Neville Moore 05/21/2016 day Yolie Almaguer 20Meq Tablets ER Cialis 1 by mouth every Unknown 5mg Tablets day Pepsid OTC take 1 tablet by Unknown 20mg Tablets mouth once per day Cranberry Peels 1 daily Unknown 100mg Capsule Cpap qhs Unknown Multiple Vitamins 1 po qd Unknown Tablets Calvin Aspirin qd Unknown 81mg Tablets DR Fish Oil 1 po qd Unknown 1000mg Capsules Coq10 1 po qd 90caps Unknown 100mg Capsules History Medications Olmesartan 1/2 by mouth every 45tabs Neville Moore 04/07/2018 - Medoxomil day Yolie Almaguer 04/09/2018 20mg Tablets Valsartan 1 by mouth every day 90tabs Neville Moore 10/27/2017 - 160mg Yolie Almaguer 04/29/2018 Tablets Losartan Potassium 1 by mouth twice a 180tabs Neville Moore 10/21/2017 - day Yolie Almaguer 10/27/2017 25mg Tablets Candesartan 1/2 by mouth every 45tabs Neville Moore 10/20/2017 - Cilexetil day Yolie Almaguer 10/19/2017 4mg Tablets Irbesartan 1 by mouth every day 90tabs Neville Moore 10/07/2017 - 150mg Yolie Almaguer 10/20/2017 Tablets Valsartan take 1 tab by mouth 90tabs I10 Neville Moore 07/10/2017 - 160mg daily Yolie Almaguer 10/06/2017 Tablets Cardizem CD take 1 tab by mouth 30caps I10 Sabina Brown, 06/02/2017 - 240mg daily N.P. 07/31/2017 Caps ER 24HR Valsartan 3 by mouth every day 240tabs Neville Moore 04/22/2017 - 40mg Yolie Almaguer 07/10/2017 Tablets Diltiazem CD 1 by mouth every day 90caps Neville Moore 01/28/2017 - 180mg Yolie Almaguer 06/23/2017 Caps ER 24HR Amlodipine Besylate 1 tab by mouth every 90tabs Neville Moore 10/07/2016 - day hold as of Yolie Almaguer 02/11/2017 5mg Tablets 11.8.17 Diltiazem CD 1 by mouth every day 90caps Neville Moore 10/07/2016 - 120mg in the evening Yolie Almaguer 01/28/2017 Caps ER 24HR Valsartan 1 by mouth every day 180tabs Neville Carol 10/07/2016 - 80mg in the evening (pt Yolie Almaguer 04/22/2017 Tablets states currently taking 40MG PO qd 01/28/17) Diltiazem CD 1 po qd 90caps Neville Moore 10/18/2014 - 180mg Yolie Almaguer 10/07/2016 Caps ER 24HR Exforge 1 by mouth every day Neville Moore 10/17/2014 - 5-160mg Yolie Almaguer 10/17/2014 Tablets Valsartan 1 tab by mouth every 100tabs Neville Moore 10/17/2014 - 160mg day Yolie Almaguer 10/07/2016 Tablets Exforge 1 by mouth every day 100tabs Neville Moore 01/26/2014 - 5-160mg Yolie Almaguer 10/17/2014 Tablets Diltiazem HCL 1 by mouth as needed 180tabs Neville Moore 01/25/2013 - 30mg palpitations q 4 Yolie Almaguer 10/16/2014 Tablets hrs. max of 3 tabs in one day Klor-Con M20 2 by mouth every day 60tabs Neville Moore 01/06/2013 - 20Meq Yolie Almaguer 07/11/2015 Tablets ER Klor-Con M20 1 po qd 90tabs Neville Moore 01/04/2013 - 20Meq Yolie Almaguer 01/06/2013 Tablets ER Ventolin HFA 2 puffs po qid prn 1units Neville Moore 01/03/2013 - Yolie Almaguer 01/25/2014 108(90Base) mcg/Act Aerosol Omeprazole 1 pill by mouth in 30cap Neville Moore 05/02/2011 - 20mg the am prior to Yolie Almaguer 01/03/[address] eating prn Exforge 1 po qam Neville Moore 03/10/2011 - 5-320mg Yolie Almaguer 01/26/2014 Tablets Potassium Chloride 2 po qd 60caps Neville Moore 11/27/2009 - CR Yolie Almaguer 03/10/2011 10Meq Capsules ER Exforge 1 po qd 30tabs Neville Moore 11/15/2009 - 10-320mg Yolie Almaguer 03/10/2011 Tablets Heart Neville Moore 02/27/2009 - 140mg Tablets Yolie Almaguer 04/04/2009 Coreg 1 PO bid 60tabs Neville Moore 01/12/2008 - 3.125mg Yolie Almaguer 02/20/2009 Tablets Enalapril Maleate 1 po bid 180tabs Neville Moore 10/19/2007 - Yolie Almaguer 02/20/2009 2.5mg Tablets Zofran Q8H prn 30tabs Neville Moore 10/19/2007 - 8mg Tablets Yolie Almaguer 01/12/2008 Enalapril Maleate 1 PO qd 30tabs Neville Moore 10/19/2007 - Yolie Almaguer 10/19/2007 10mg Tablets Enalapril Maleate 1 po qd 100tabs Neville Moore 10/13/2007 - Yolie Almaguer 10/19/2007 5mg Tablets Coreg 2 po bid 120tabs Neville Moore 06/02/2007 - 3.125mg Yolie Almaguer 10/13/2007 Tablets Maxair Autohaler 2 Puffs PO Q 4-6 Neville Moore 06/02/2007 - HRS. prn Yolie Almaguer 10/19/2007 200mcg/Inh Aerosol Co Enzyme Q-10 1 PO qd Neville Moore 12/01/2006 - Yolie Almaguer 10/19/2007 Capsules Pulmicort 1 puff qd Neville Moore 07/13/2006 - inhaler Yolie Almaguer 12/01/2006 Maxair Autohaler 2 puffs qd Neville Moore 07/13/2006 - Yolie Almaguer 06/02/2007 200mcg/Inh Aerosol Garlic Tab one qd Neville Moore 05/22/2006 - Yolie Almaguer 10/19/2007 Fish Oil one qd Neville Moore 05/22/2006 - Yolie Almaguer 12/01/2006 Vitamins & Minerals one qd Neville Moore 05/22/2006 - Yloie Almaguer 10/19/2007 Tablets Coreg 1 tablet po bid 360tabs Neville Moore 05/22/2006 - 3.125mg Yolie Almaguer 06/02/2007 Tablets Atenolol 1 po qd 30tabs Neville Moore 03/26/2006 - 25mg Yolie Almaguer 03/26/2006 Tablets Atenolol 1/2 tab po qd Neville Moore 03/26/2006 - 25mg Yolie Almaguer 05/22/2006 Tablets Clonazepam 1 po bid Neville Moore 01/07/2006 - 0.5mg Yolie Almaguer 03/26/2006 Tablets Lexapro 1 po qd 30tabs Neville Moore 12/12/2005 - 10mg Yolie Almaguer 12/12/2005 Tablets Nitro-Dur 1 to chest wall qam 30units Neville Moore 11/26/2005 - off qpm Yolie Almaguer 12/10/2005 0.2mg/Hour Patches Aspirin 1 PO qd Neville Moore 11/26/2005 - 81mg Yolie Almaguer 10/19/2007 Chewtabs Cardizem CD 1 po qd 30caps Neville Moore 11/26/2005 - 120mg Yolie Almaguer 11/05/2016 Capsules Zantac 1 po qd 30units Neville Moore 09/16/2005 - 150mg Yolie Almaguer 09/24/2005 Granules Proventil as directed Neville Moore 09/16/2005 - Yolie Almaguer 12/18/2005 90mcg/Dose Aerosol Pravachol one qhs 30tabs Neville Moore 09/16/2005 - 40mg Yolie Almaguer 12/18/2005 Tablets Protonix 1 po qd 30units Neville Moore 09/16/2005 - 40mg Yolie Almaguer 12/12/2005 Injection Omeprazole 1 by mouth every day 90caps Sabina Brown, - 20mg N.P. 06/24/2017 Capsules Omeprazole 1 by mouth every day Unknown - 20mg 11/06/2016 Tablets Exforge 1 tab by mouth every 90tabs Neville Carol - 5-320mg day Yolie Almaguer 10/07/2016 Tablets Flomax 1 by mouth every day 30caps Unknown - 0.4mg 07/11/2015 Capsules Ranitidine HCL po qd on hold 90tabs Unknown - 10/16/2014 300mg Tablets Diltiazem 1 po qd 90tabs Neville Carol - 180mg Yolie Almaguer 10/18/2014 Tablets Xopenex HFA 2 puffs qid prn 1units Unknown - 01/03/2013 45mcg/Act Aerosol Dulera 2 puff bid prn 1mon Unknown - 100-5mcg/Act 01/03/2013 Aerosol Xyzal 1 po qd 30tabs Unknown - 2.5mg Tablet 10/16/2014 Albuterol 2 puffs po qid prn 1units Unknown - 90mcg/Act 11/12/2011 Aerosol Asmanex 30 Metered 1 po qd 1Mon Unknown - Doses 11/12/2011 Aerosol Zoloft 1 po qd 30tabs Unknown - Tablets 03/10/2011 Chloestrol OTC 1 po qd Unknown - 03/10/2011 Capsules Centrum Cardio 1 po qd Unknown - 03/10/2011 Tablets Multiple Vitamin Unknown - 07/24/2009 Unspecified Tablets Heart Advantage Unknown - Vitamins 07/24/2009 Unspecified Capsules Exforge 1 po qam 90tabs Unknown - 5-320mg 11/15/2009 Tablets Vital Signs Date Vital Result Comment 08/04/2018 10:53am Height 74 inches 6'2" Weight 257.00 lb Heart Rate 68 /min BP Systolic Sitting 142 mmHg left upper arm large cuff BP Diastolic Sitting 80 mmHg left upper arm large cuff Respiratory Rate 12 /min O2 % BldC Oximetry 97 % BMI (Body Mass Index) 33.0 kg/m2 04/29/2018 1:37pm BP Systolic 126 mmHg Ule sitting large adult cuff BP Diastolic 84 mmHg Ule sitting large adult cuff BP Systolic Sitting 128 mmHg Ure sitting large adult cuff BP Diastolic Sitting 84 mmHg Ure sitting large adult cuff BP Systolic Standing 120 mmHg Ule standing large adult cuff BP Diastolic Standing 84 mmHg Ule standing large adult cuff BP Systolic Lying Down 124 mmHg Ure standing large adult cuff BP Diastolic Lying Down 80 mmHg Ure standing large adult cuff 01/12/2018 8:55am Height 74 inches 6'2" Weight 258.50 lb w/o shoes Heart Rate 62 /min BP Systolic Sitting 124 mmHg Lue lg cuff BP Diastolic Sitting 78 mmHg Lue lg cuff BMI (Body Mass Index) 33.2 kg/m2 Ejection Fraction 55-60% Echo 06/25/16 09/22/2017 2:59pm Height 74 inches 6'2" Weight 250.00 lb with shoes Heart Rate 68 /min BP Systolic Sitting 124 mmHg Lue lg cuff BP Diastolic Sitting 80 mmHg Lue lg cuff BP Systolic Standing 130 mmHg Lue lg cuff BP Diastolic Standing 90 mmHg Lue lg cuff Respiratory Rate 16 /min BMI (Body Mass Index) 32.1 kg/m2 Ejection Fraction 55-60% date 06/25/16 ECHO 07/31/2017 9:38am Height 74 inches 6'2" Weight 255.00 lb Heart Rate 80 /min BP Systolic Sitting 116 mmHg BP Diastolic Sitting 82 mmHg Respiratory Rate 14 /min O2 % BldC Oximetry 95 % BMI (Body Mass Index) 32.7 kg/m2 Neck Circumference in inches 17.75 07/10/2017 8:20am Height 74 inches 6'2" Weight 254.00 lb Heart Rate 64 /min BP Systolic Sitting 122 mmHg Lue large cuff BP Diastolic Sitting 86 mmHg Lue large cuff BP Systolic Standing 118 mmHg Lue BP Diastolic Standing 84 mmHg Lue Respiratory Rate 16 /min BMI (Body Mass Index) 32.6 kg/m2 Ejection Fraction 55-60% 06/25/16 06/02/2017 1:41pm Height 74 inches 6'2" Weight 259.00 lb Heart Rate 68 /min BP Systolic Sitting 140 mmHg Lue large cuff BP Diastolic Sitting 92 mmHg Lue large cuff BP Systolic Standing 140 mmHg Lue BP Diastolic Standing 92 mmHg Lue Respiratory Rate 16 /min BMI (Body Mass Index) 33.2 kg/m2 Ejection Fraction 55-60% 06/25/16 04/22/2017 2:47pm Height 74 inches 6'2" Weight 263.00 lb Heart Rate 76 /min BP Systolic Sitting 130 mmHg BP Diastolic Sitting 90 mmHg BMI (Body Mass Index) 33.8 kg/m2 Ejection Fraction 55%-60% 06/25/16 02/11/2017 8:17am Height 74 inches 6'2" Weight 262.00 lb No shoes Heart Rate 74 /min BP Systolic Sitting 128 mmHg Lue lrg cuff BP Diastolic Sitting 82 mmHg Lue lrg cuff BP Systolic Standing 128 mmHg Lue lrg cuff BP Diastolic Standing 88 mmHg Lue lrg cuff Respiratory Rate 16 /min BMI (Body Mass Index) 33.6 kg/m2 Ejection Fraction 55-60% 06/25/2016-echo 01/28/2017 1:33pm Height 74 inches 6'2" Weight 259.00 lb with shoes Heart Rate 86 /min BP Systolic Sitting 126 mmHg LA lrg cuff BP Diastolic Sitting 78 mmHg LA lrg cuff BMI (Body Mass Index) 33.2 kg/m2 Ejection Fraction 55% - 60% echo 06/25/16 11/07/2016 9:10am Height 74 inches 6'2" Weight 262.00 lb with shoes Heart Rate 76 /min BP Systolic Sitting 130 mmHg Ra lrg cuff BP Diastolic Sitting 82 mmHg Ra lrg cuff BMI (Body Mass Index) 33.6 kg/m2 Ejection Fraction 55% - 60% echo 06/25/16 10/07/2016 1:20pm Height 74 inches 6'2" Weight 260.00 lb with shoes Heart Rate 80 /min BP Systolic Sitting 122 mmHg LA lrg cuff BP Diastolic Sitting 80 mmHg LA lrg cuff BMI (Body Mass Index) 33.4 kg/m2 Ejection Fraction 55% - 60% echo 06/25/16 06/03/2016 9:09am Height 74 inches 6'2" Weight 256.00 lb no shoes Heart Rate 72 /min BP Systolic Sitting 118 mmHg Lue large cuff BP Diastolic Sitting 82 mmHg Lue large cuff BP Systolic Standing 116 mmHg Lue large cuff BP Diastolic Standing 80 mmHg Lue large cuff Respiratory Rate 15 /min BMI (Body Mass Index) 32.9 kg/m2 04/17/2016 8:37am Height 74 inches 6'2" Weight 253.50 lb no shoes Heart Rate 62 /min BP Systolic Sitting 108 mmHg Lue lrg cuff BP Diastolic Sitting 80 mmHg Lue lrg cuff BP Systolic Standing 112 mmHg Lue lrg cuff BP Diastolic Standing 74 mmHg Lue lrg cuff Respiratory Rate 15 /min BMI (Body Mass Index) 32.5 kg/m2 07/12/2015 9:34am Height 74 inches 6'2" Weight 251.75 lb w/shoes Heart Rate 70 /min BP Systolic Sitting 110 mmHg LA lg cuff BP Diastolic Sitting 70 mmHg LA lg cuff BMI (Body Mass Index) 32.3 kg/m2 Ejection Fraction 55% Nem 01/12/13 10/17/2014 2:47pm Height 74 inches 6'2" Weight 245.00 lb Heart Rate 80 /min BP Systolic Sitting 128 mmHg LA, reg BP Diastolic Sitting 78 mmHg LA, reg BMI (Body Mass Index) 31.5 kg/m2 01/26/2014 3:23pm Height 74 inches 6'2" Weight 256.00 lb w/shoes Heart Rate 64 /min BP Systolic Sitting 110 mmHg LA lg cuff BP Diastolic Sitting 70 mmHg LA lg cuff Respiratory Rate 18 /min BMI (Body Mass Index) 32.9 kg/m2 07/25/2013 3:13pm Height 74 inches 6'2" Weight 255.00 lb Heart Rate 72 /min BP Systolic Sitting 122 mmHg BP Diastolic Sitting 68 mmHg BMI (Body Mass Index) 32.7 kg/m2 01/25/2013 3:03pm Height 74 inches 6'2" Weight 257.00 lb Heart Rate 76 /min BP Systolic 130 mmHg BP Diastolic 80 mmHg Respiratory Rate 16 /min BMI (Body Mass Index) 33.0 kg/m2 01/03/2013 12:47pm Height 74 inches 6'2" Weight 254.00 lb Heart Rate 80 /min BP Systolic 120 mmHg BP Diastolic 76 mmHg BMI (Body Mass Index) 32.6 kg/m2 07/09/2012 2:46pm Height 74 inches 6'2" Weight 253.25 lb Heart Rate 80 /min BP Systolic Sitting 130 mmHg BP Diastolic Sitting 86 mmHg BMI (Body Mass Index) 32.5 kg/m2 11/12/2011 3:21pm Height 74 inches 6'2" Weight 246.00 lb Heart Rate 72 /min reg BP Systolic Sitting 124 mmHg BP Diastolic Sitting 80 mmHg BMI (Body Mass Index) 31.6 kg/m2 05/02/2011 2:05pm Height 74 inches 6'2" Weight 256.00 lb Heart Rate 83 /min BP Systolic Sitting 136 mmHg BP Diastolic Sitting 84 mmHg BMI (Body Mass Index) 32.9 kg/m2 04/24/2011 9:22am Height 74 inches 6'2" Weight 254.00 lb Heart Rate 62 /min BP Systolic 122 mmHg BP Diastolic 80 mmHg Respiratory Rate 16 /min BMI (Body Mass Index) 32.6 kg/m2 03/10/2011 11:21am Height 74 inches 6'2" Weight 253.00 lb Heart Rate 73 /min BP Systolic Sitting 142 mmHg BP Diastolic Sitting 80 mmHg BMI (Body Mass Index) 32.5 kg/m2 11/27/2009 4:26pm Height 74 inches 6'2" Weight 241.00 lb Heart Rate 83 /min BP Systolic 160 mmHg BP Diastolic 90 mmHg Respiratory Rate 16 /min BMI (Body Mass Index) 30.9 kg/m2 11/14/2009 2:18pm Height 74 inches 6'2" Weight 242.00 lb Heart Rate 84 /min BP Systolic Sitting 148 mmHg BP Diastolic Sitting 98 mmHg BMI (Body Mass Index) 31.1 kg/m2 07/24/2009 3:47pm Weight 244.00 lb Heart Rate 70 /min BP Systolic 138 mmHg BP Diastolic 44 mmHg Respiratory Rate 16 /min 04/12/2009 10:08am Height 74 inches 6'2" Weight 244.00 lb Heart Rate 87 /min BP Systolic Sitting 110 mmHg BP Diastolic Sitting 80 mmHg BMI (Body Mass Index) 31.3 kg/m2 02/27/2009 10:19am Height 74 inches 6'2" Weight 247.00 lb Heart Rate 95 /min BP Systolic Sitting 120 mmHg BP Diastolic Sitting 85 mmHg BMI (Body Mass Index) 31.7 kg/m2 01/12/2008 3:03pm Height 74 inches 6'2" Weight 239.00 lb Heart Rate 63 /min BP Systolic Sitting 140 mmHg BP Diastolic Sitting 90 mmHg BP Systolic Standing 142 mmHg BP Diastolic Standing 90 mmHg Respiratory Rate 16 /min BMI (Body Mass Index) 30.7 kg/m2 10/19/2007 2:08pm Height 74 inches 6'2" Weight 220.00 lb Heart Rate 80 /min BP Systolic Sitting 120 mmHg BP Diastolic Sitting 80 mmHg Respiratory Rate 16 /min BMI (Body Mass Index) 28.2 kg/m2 06/02/2007 3:27pm Height 74 inches 6'2" Weight 239.00 lb Heart Rate 68 /min BP Systolic Sitting 132 mmHg BP Diastolic Sitting 80 mmHg BP Systolic Standing 130 mmHg BP Diastolic Standing 80 mmHg BMI (Body Mass Index) 30.7 kg/m2 12/01/2006 3:44pm Height 74 inches 6'2" Weight 236.75 lb Heart Rate 78 /min reg BP Systolic Sitting 124 mmHg BP Diastolic Sitting 80 mmHg BP Systolic Standing 130 mmHg BP Diastolic Standing 80 mmHg BMI (Body Mass Index) 30.4 kg/m2 07/13/2006 3:33pm Height 74 inches 6'2" Weight 234.00 lb Heart Rate 80 /min BP Systolic Sitting 130 mmHg BP Diastolic Sitting 90 mmHg BP Systolic Standing 122 mmHg BP Diastolic Standing 94 mmHg Respiratory Rate 16 /min BMI (Body Mass Index) 30.0 kg/m2 05/22/2006 3:35pm Height 74 inches 6'2" Weight 231.00 lb Heart Rate 73 /min BP Systolic Sitting 120 mmHg L BP Diastolic Sitting 82 mmHg L BP Systolic Standing 124 mmHg L BP Diastolic Standing 80 mmHg L BMI (Body Mass Index) 29.7 kg/m2 01/07/2006 3:12pm Height 74 inches 6'2" Weight 233.00 lb Heart Rate 88 /min BP Systolic Sitting 124 mmHg BP Diastolic Sitting 84 mmHg Respiratory Rate 16 /min BMI (Body Mass Index) 29.9 kg/m2 12/18/2005 9:58am Height 74 inches 6'2" Weight 231.00 lb Heart Rate 80 /min BP Systolic Sitting 140 mmHg R BP Diastolic Sitting 90 mmHg R BMI (Body Mass Index) 29.7 kg/m2 12/12/2005 10:16am Height 74 inches 6'2" Heart Rate 82 /min BP Systolic Sitting 150 mmHg BP Diastolic Sitting 90 mmHg BP Systolic Standing 150 mmHg BP Diastolic Standing 94 mmHg 12/10/2005 2:53pm Height 74 inches 6'2" Heart Rate 64 /min reg BP Systolic Sitting 124 mmHg BP Diastolic Sitting 80 mmHg 11/26/2005 1:52pm Height 74 inches 6'2" Weight 248.00 lb Heart Rate 86 /min BP Systolic Sitting 140 mmHg L BP Diastolic Sitting 90 mmHg L BP Systolic Standing 140 mmHg L BP Diastolic Standing 98 mmHg L BMI (Body Mass Index) 31.8 kg/m2 Results Test Date Facility Test Result H/L Range Note Urine Culture And 04/22/2018 [facility] Urine Culture SEE RESULT [address] [place] [address] [phone] Urine Microalbumin 04/22/2018 [facility] Ur Microalbumin 161.[address] (mg/L) [place], [place] [id number] [phone] Urine Creatinine 166.54 mg/dL Urine Microalbumin/Creatinine 96.7 High <31 Laboratory test 04/22/2018 [facility] Total Protein 32 mg/dL finding [address] Random Urine [place], [place] [id number] [phone] Creatinine Random Urine 166.54 mg/dL Basic Metabolic Panel 04/22/2018 [facility] Sodium 139 mmol/L N 135-[address] [place] [address] [phone] Potassium 4.2 mmol/L N 3.5-5.0 Chloride 105 mmol/L N 101-111 Co2 Carbon Dioxide 27 mmol/L N 22-32 Anion Gap 7 mmol/L N 2-11 Glucose 85 mg/dL N 70-100 Blood Urea Nitrogen 13 mg/dL N 6-24 Creatinine 1.16 mg/dL N 0.67-1.17 BUN/Creatinine Ratio 11.2 N 8-20 Calcium 9.4 mg/dL N 8.6-10.3 Egfr Non- 64.4 >60 Egfr 78.0 >60 2 Neutrophil Cytoplasmic 04/22/2018 [facility] C-Anca Negative Negative AB [address] [place] [address] [phone] P-Anca Negative Negative 3 Laboratory test 04/22/2018 [facility] Anti Double <12.3 4 finding [facility] Stranded Dna AB IU/[place] [address] [phone] 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 Igg 04/22/2018 [facility] U1 [employer] DESIGNER IgG <0.2 U [address] [place] [address] [phone] Laboratory test 04/22/2018 [facility] Hemoglobin A1c 6.4 % High 4.0-5 6 finding [facility] (Glyco HGB) .6 [place] [address] [phone] Aldolase 5.8 U/L <7.7 7 Anti Nuclear Antibody 0.2 U 8 Urinalysis Profile 04/22/2018 [facility] Urine Color Yellow [address] [place] [address] [phone] Urine Appearance Clear Urine Specific [place] 1.020 N 1.010-1.030 Urine pH 7.0 N 5-9 Urine Urobilinogen Negative Negative Urine Ketones Negative Negative Urine Protein 1+(30 mg/dL) Abnormal Negative Urine Leukocytes Negative Negative Urine Blood Negative Negative * * Abnormal Negative 9 Urine Nitrite Negative Negative Urine Bilirubin Negative Negative Urine Glucose Negative Negative Urine White Blood Cell Trace(0-5/hpf) Absent Urine Red Blood Cell Trace(0-2/hpf) Absent Urine Bacteria Absent Absent Laboratory test 04/22/2018 [facility] Creatine 432 U/L High 10 -223 finding [address] [facility] Kinase(CK) [place] [address] [phone] Laboratory test 04/22/2018 [facility] Alternaria <0.35 [address] tenuis IgE kU/[place] [address] Allergen [phone] Aspergillus Fumigatus IgE <0.35 kU/L 11 [place] Grass Allergen IgE <0.35 kU/L 12 Silver Birch IgE <0.35 kU/L 13 [place] Maple IgE <0.35 kU/L 14 Cat Epithelium Allergen IgE <0.35 kU/L 15 Cladosporium herbarum IgE <0.35 kU/L 16 Cockroach Allergen IgE <0.35 kU/L 17 Dermatophagoides farinae IgE <0.35 kU/L 18 Dermatophagoides pteronyssinus <0.35 kU/L 19 Dog Dander Allergen IgE <0.35 kU/L 20 Elm Tree Allergen IgE <0.35 kU/L 21 [place] Plantain Allergen IgE <0.35 kU/L 22 Helminthosporium halodes IgE <0.35 kU/L 23 [place] Allergen IgE <0.35 kU/L 24 Mucor racemosus Allergen IgE <0.35 kU/L 25 [place] Allergen IgE <0.35 kU/L 26 Pecan Allergen IgE <0.35 kU/L 27 Penicillium notatum Allerg IgE <0.35 kU/L 28 Common Ragweed (Short) Allerge <0.35 kU/L 29 Giant Ragweed Allergen IgE <0.35 kU/L 30 [place] Tree Allergen IgE <0.35 kU/L 31 [place] Grass Allergen IgE <0.35 kU/L 32 White [place] Allergen IgE <0.35 kU/L 33 Immunoglobulin E (Ige) <2.0 kU/L <=214 34 Miscellaneous Test See Comment 35 Laboratory test 07/09/2017 [facility] Creatine 405 U/L High 10 -223 [address] Kinase(CK) [place] [address] [phone] Laboratory test 06/01/2017 [facility] Creatine 408 U/L High 10 -223 [address] Kinase(CK) [place] [address] [phone] Basic Metabolic 06/01/2017 [facility] Sodium 138 N 133-[address] mmol/[place] [address] [phone] Potassium 4.1 mmol/L N 3.5-5.0 Chloride 104 mmol/L N 101-111 Co2 Carbon Dioxide 31 mmol/L N 22-32 Anion Gap 3 mmol/L N 2-11 Glucose 96 mg/dL N 70-100 Blood Urea Nitrogen 12 mg/dL N 6-24 Creatinine 1.41 mg/dL High 0.67-1.17 BUN/Creatinine Ratio 8.5 N 8-20 Calcium 9.2 mg/dL N 8.6-10.3 Egfr Non- 51.4 >60 Egfr 66.2 >60 38 Laboratory test 06/01/2017 [facility] Erythrocyte Sed 13 mm/Hr N 0-20 [address] [place] [address] [phone] C Reactive Protein 2.66 mg/L N < 5.00 40 Magnesium 2.2 mg/dL N 1.9-2.7 41 Rheumatoid Factor <10 IU/mL 0-14 42 Nuclear AB (Desire) By Ifa Igg <1:80 (Negative) 43 Comp Metabolic Panel 02/11/2017 [facility] Sodium 139 mmol/L N 133-[address] [place] [address] [phone] Potassium 4.0 mmol/L N 3.5-5.0 Chloride 105 mmol/L N 101-111 Co2 Carbon Dioxide 27 mmol/L N 22-32 Anion Gap 7 mmol/L N 2-11 Glucose 106 mg/dL High 70-100 Blood Urea Nitrogen 10 mg/dL N 6-24 Creatinine 1.21 mg/dL High 0.67-1.17 BUN/Creatinine Ratio 8.3 N 8-20 Calcium 9.4 mg/dL N 8.6-10.3 Total Protein 7.4 g/dL N 6.4-8.9 Albumin 4.4 g/dL N 3.2-5.2 Globulin 3.0 g/dL N 2-4 Albumin/Globulin Ratio 1.5 N 1-3 Total Bilirubin 0.60 mg/dL N 0.2-1.0 Alkaline Phosphatase 70 U/L N 34-104 Alt 27 U/L N 7-52 Ast 28 U/L N 13-39 Egfr Non- 61.6 >60 Egfr 79.2 >60 44 Laboratory test 02/11/2017 [facility] TSH (Thyroid 3.94 mcIU/mL N 0.34-5.[address] Stim Horm) [place] [address] [phone] Magnesium 2.2 mg/dL N 1.9-2.7 CBC Auto Diff 02/11/2017 [facility] White Blood 5.5 10^3/uL N 3.5-10.[address] Count [place] [address] [phone] Red Blood Count 4.94 10^6/uL N 4.0-5.4 Hemoglobin 14.7 g/dL N 14.0-18.0 Hematocrit 44 % N 42-52 Mean Corpuscular Volume 90 fL N 80-94 Mean Corpuscular Hemoglobin 30 pg N 27-31 Mean Corpuscular HGB Conc 33 g/dL N 31-36 Red Cell Distribution Width 15 % N 10.5-15 Platelet Count 251 10^3/uL N 150-450 Mean Platelet Volume 8 um3 N 7.4-10.4 Abs Neutrophils 2.4 10^3/uL N 1.5-7.7 Abs Lymphocytes 2.0 10^3/uL N 1.0-4.8 Abs Monocytes 0.7 10^3/uL N 0-0.8 Abs Eosinophils 0.4 10^3/uL N 0-0.6 Abs Basophils 0.1 10^3/uL N 0-0.2 Abs Nucleated RBC 0 10^3/uL Granulocyte % 43.5 % N 38-83 Lymphocyte % 36.4 % N 25-47 Monocyte % 12.1 % High 1-9 Eosinophil % 7.0 % High 0-6 Basophil % 1.0 % N 0-2 Nucleated Red Blood Cells % 0.1 Laboratory test 06/03/2016 [facility] Magnesium 2.2 mg/dL N 1.9-2.7 [address] [place] [address] [phone] TSH (Thyroid Stim Horm) 2.90 mcIU/mL N 0.34-5.60 46 CBC Auto Diff 06/03/2016 [facility] White Blood 6.6 10^3/uL N 3.5-10.[address] [place] [place] [address] [phone] Red Blood Count 4.88 10^6/uL N 4.0-5.4 Hemoglobin 14.7 g/dL N 14.0-18.0 Hematocrit 43 % N 42-52 Mean Corpuscular Volume 89 fL N 80-94 Mean Corpuscular Hemoglobin 30 pg N 27-31 Mean Corpuscular HGB Conc 34 g/dL N 31-36 Red Cell Distribution Width 14 % N 10.5-15 Platelet Count 222 10^3/uL N 150-450 Mean Platelet Volume 8 um3 N 7.4-10.4 Abs Neutrophils 2.6 10^3/uL N 1.5-7.7 Abs Lymphocytes 2.9 10^3/uL N 1.0-4.8 Abs Monocytes 0.7 10^3/uL N 0-0.8 Abs Eosinophils 0.3 10^3/uL N 0-0.6 Abs Basophils 0 10^3/uL N 0-0.2 Abs Nucleated RBC 0.01 10^3/uL N Granulocyte % 40.0 % N 38-83 Lymphocyte % 43.7 % N 25-47 Monocyte % 10.9 % High 1-9 Eosinophil % 4.8 % N 0-6 Basophil % 0.6 % N 0-2 Nucleated Red Blood Cells % 0.2 N Lipid Profile 06/03/2016 [facility] Triglycerides 181 mg/dL N 47 (Trig/Chol/HDL) [address] [place] [address] [phone] Cholesterol 205 mg/dL N 48 HDL Cholesterol 42.7 mg/dL N 49 LDL Cholesterol 126 mg/dL N 50 Comp Metabolic Panel 06/03/2016 [facility] Sodium 138 mmol/L N 133-145 [address] [place] [address] [phone] Potassium 3.9 mmol/L N 3.5-5.0 Chloride 103 mmol/L N 101-111 Co2 Carbon Dioxide 28 mmol/L N 22-32 Anion Gap 7 mmol/L N 2-11 Glucose 109 mg/dL High 70-100 Blood Urea Nitrogen 11 mg/dL N 6-24 Creatinine 1.28 mg/dL High 0.67-1.17 BUN/Creatinine Ratio 8.6 N 8-20 Calcium 9.2 mg/dL N 8.6-10.3 Total Protein 7.5 g/dL N 6.4-8.9 Albumin 4.2 g/dL N 3.2-5.2 Globulin 3.3 g/dL N 2-4 Albumin/Globulin Ratio 1.3 N 1-3 Total Bilirubin 0.40 mg/dL N 0.2-1.0 Alkaline Phosphatase 72 U/L N 34-104 Alt 27 U/L N 7-52 Ast 26 U/L N 13-39 Egfr Non- 57.7 N >60 Egfr 74.2 N >60 51 Lipid Panel - 06/03/2016 [facility] Creatine 453 U/L High 10- [address] Kinase(CK) [place] [address] [phone] Laboratory test 04/21/2016 [facility] Hemoglobin A1c 5.9 % N Less than [address] (Glyco HGB) 6.0 [place] [address] [phone] Basic Metabolic 10/16/2014 Sodium 138 N 133-145 Panel mmol/L Potassium 3.7 mmol/L N 3.5-5.0 Chloride 105 mmol/L N 101-111 Co2 Carbon Dioxide 28 mmol/L N 22-32 Anion Gap 5 mmol/L N 2-11 Glucose 98 mg/dL N 70-100 Blood Urea Nitrogen 14 mg/dL N 6-24 Creatinine 1.27 mg/dL High 0.67-1.17 BUN/Creatinine Ratio 11.0 N 8-20 Calcium 9.2 mg/dL N 8.6-10.3 Egfr Non- 58.7 N >60 Egfr 75.4 N >60 54 Laboratory test finding 10/16/2014 Magnesium 2.1 mg/dL N 1.9-2.7 55 Creatine Kinase(CK) 375 U/L High 10-223 56 Lipid Profile (Trig/Chol/HDL) 09/04/2014 Triglycerides 99 mg/dL N 57 Cholesterol 195 mg/dL N 58 HDL Cholesterol 45.5 mg/dL N 59 LDL Cholesterol 130 mg/dL N 60 Comp Metabolic Panel 09/04/2014 Sodium 138 mmol/L N 133-145 Potassium 3.8 mmol/L N 3.5-5.0 Chloride 106 mmol/L N 101-111 Co2 Carbon Dioxide 27 mmol/L N 22-32 Anion Gap 5 mmol/L N 2-11 Glucose 103 mg/dL High 70-100 Blood Urea Nitrogen 12 mg/dL N 6-24 Creatinine 1.38 mg/dL High 0.67-1.17 BUN/Creatinine Ratio 8.7 N 8-20 Calcium 9.0 mg/dL N 8.6-10.3 Total Protein 7.2 g/dL N 6.4-8.9 Albumin 4.3 g/dL N 3.2-5.2 Globulin 2.9 g/dL N 2-4 Albumin/Globulin Ratio 1.5 N 1-3 Total Bilirubin 0.50 mg/dL N 0.2-1.0 Alkaline Phosphatase 75 U/L N 34-104 Alt 18 U/L N 7-52 Ast 22 U/L N 13-39 Egfr Non- 53.3 N >60 Egfr 68.5 N >60 61 CBC Auto Diff 09/04/2014 White Blood Count 4.6 10^3/uL Low 4.8-10.8 Red Blood Count 4.82 10^6/uL N 4.0-5.4 Hemoglobin 14.4 g/dL N 14.0-18.0 Hematocrit 44 % N 42-52 Mean Corpuscular Volume 90 fL N 80-94 Mean Corpuscular Hemoglobin 30 pg N 27-31 Mean Corpuscular HGB Conc 33 g/dL N 31-36 Red Cell Distribution Width 14 % N 10.5-15 Platelet Count 209 10^3/uL N 150-450 Mean Platelet Volume 9 um3 N 7.4-10.4 Abs Neutrophils 2.8 10^3/uL N 1.5-7.7 Abs Lymphocytes 1.3 10^3/uL N 1.0-4.8 Abs Monocytes 0.4 10^3/uL N 0-0.8 Abs Eosinophils 0.1 10^3/uL N 0-0.6 Abs Basophils 0 10^3/uL N 0-0.2 Abs Nucleated RBC 0 10^3/uL N Granulocyte % 60.6 % N 38-83 Lymphocyte % 27.5 % N 25-47 Monocyte % 9.2 % High 1-9 Eosinophil % 1.9 % N 0-6 Basophil % 0.8 % N 0-2 Nucleated Red Blood Cells % 0 N Lipid Panel - [facility] 09/04/2014 Creatine Kinase(CK) 384 U/L High 10-223 62 Laboratory test 06/22/2012 [facility] Creatine Kinase 210 U/L High 0-[address] [place] [address] [phone] Lipid Profile 06/22/2012 [facility] Triglycerides 162 mg/dL 40-200 (Trig/Chol/HDL) [address] [place], [place] [id number] [phone] Cholesterol 223 mg/dL High Less than 200 HDL Cholesterol 57 mg/dL 40-60 63 Cholesterol/HDL Ratio 3.9 Average 1-4.44 LDL Cholesterol 133.6 mg/dL High Less Than 100 64 Comp Metabolic Panel 06/22/2012 [facility] Sodium 139 mmol/L 133-[address] [place], [place] [id number] [phone] Potassium 4.0 mmol/L 3.5-5.0 Chloride 104 mmol/L 101-111 Co2 Carbon Dioxide 29.0 mmol/L 22-32 Anion Gap 6.0 mmol/L 2-11 Glucose 115 mg/dL High 70-100 Blood Urea Nitrogen 9 mg/dL 6-24 Creatinine 1.30 mg/dL 0.50-1.40 BUN/Creatinine Ratio 6.9 Low 8-20 Calcium 9.4 mg/dL 8.1-9.9 Total Protein 6.7 g/dL 6.2-8.1 Albumin 3.9 g/dL 3.6-5.4 Globulin 2.8 g/dL 2-4 Albumin/Globulin Ratio 1.4 1-3 Total Bilirubin 0.7 mg/dL 0.4-1.5 Alkaline Phosphatase 67 U/L 30-110 Alt 23 U/L 14-54 Ast 20 U/L 12-42 Egfr Non- 57.5 >60 Egfr 74.0 >60 65 Laboratory test 06/22/2012 [facility] TSH (Thyroid 3.54 0.34- 5.60 finding 101 Stimulating miu/[place] [address] Horm) [phone] CBC Auto Diff 06/22/2012 [facility] White Blood 7.6 4.8-10.8 Count 10^3/uL [place], [place] [id number] [phone] Red Blood Count 4.98 10^6/uL 4.0-5.4 Hemoglobin 15.2 g/dL 14.0-18.0 Hematocrit 46 % 42-52 Mean Corpuscular Volume 93 fL 80-94 Mean Corpuscular Hemoglobin 31 pg 27-31 Mean Corpuscular HGB Conc 33 g/dL 31-36 Red Cell Distribution Width 14 % 10.5-15 Platelet Count 210 10^3/uL 150-450 Mean Platelet Volume 8 um3 7.4-10.4 Abs Neutrophils 4.4 10^3/uL 1.5-7.7 Abs Lymphocytes 2.3 10^3/uL 1.0-4.8 Abs Monocytes 0.8 10^3/uL 0-0.8 Abs Eosinophils 0.1 10^3/uL 0-0.6 Abs Basophils 0.1 10^3/uL 0-0.2 Abs Nucleated RBC 0 10^3/uL Granulocyte % 58.2 % 38-83 Lymphocyte % 30.1 % 25-47 Monocyte % 10.1 % High 1-9 Eosinophil % 0.9 % 0-6 Basophil % 0.7 % 0-2 Nucleated Red Blood Cells % 0 Laboratory test 06/22/2012 [facility] Magnesium 2.3 mg/dL 1.7 -2.[address] [place] [address] [phone] Laboratory test 07/07/2011 [facility] TSH 2.04 MIU/ML 0.34- 5.[address] [place] [address] [phone] Laboratory test 07/07/2011 [facility] Magnesium 2.4 mg/dL 1.7 -2.[address] [place] [address] [phone] Basic Metabolic 07/07/2011 [facility] Sodium 140 mmol/L 135- [address] [place] [address] [phone] Potassium 4.3 mmol/L 3.5-5.0 Chloride 106 mmol/L 101-111 Co2 (Carbon Dioxide) 29.0 mmol/L 22-32 Anion Gap 5.0 mmol/L 2-11 66 Glucose 102 mg/dL High 70-100 BUN 12 mg/dL 6-24 Creatinine 1.3 mg/dL 0.50-1.40 One Over Creatinine 0.76 BUN/Creatinine Ratio 9.2 8-20 Calcium 8.9 mg/dL 8.1-9.9 eGFR Non- 57.7 > 60 eGFR 74.3 > 60 67 Basic Metabolic Panel 11/20/2009 [facility] Sodium 140 mmol/L 135-[address] [place] [address] [phone] Potassium 3.9 mmol/L 3.5-5.0 Chloride 105 mmol/L 101-111 Co2 (Carbon Dioxide) 30.0 mmol/L 22-32 Anion Gap 5.0 mmol/L 2-11 68 Glucose 83 mg/dL 70-100 69 BUN 11 mg/dL 6-24 Creatinine 1.20 mg/dL 0.50-1.40 One Over Creatinine 0.80 BUN/Creatinine Ratio 9.2 8-20 Calcium 9.1 mg/dL 8.1-9.9 70 eGFR Non- 67.8 > 60 eGFR 82.1 > 60 71 Laboratory test 11/20/2009 [facility] Erythrocyte Sed 19 MM/HR 0-[address] [place] [address] [phone] C Reactive Protein 0.6 mg/dL High Less Than 0.5 CBC With 11/20/2009 [facility] White Blood 4.5 CUMM Low 4.8- 10.8 Electronic Diff [address] [place] [place] [address] [phone] Red Cell Count 4.57 CUMM Low 4.6-6.2 Hemoglobin 14.1 g/dL 14.0-18.0 Hematocrit 41 % Low 42-52 Mean Corpuscular Volume 90 um3 80-94 Mean Corpuscular Hemoglob 31 pg 27-31 Mean Corpuscular HGB Cone 34 g/dL 32-36 Redcell Distribution WDTH 14 % 10.5-15 Platelet Count 191 CUMM 150-450 Mean Platelet Volume 7.8 um3 7.4-10.4 72 Laboratory test 11/20/2009 [facility] TSH 1.76 0.34-5.[address] MIU/[place] [address] [phone] Manual 11/20/2009 [facility] Polysegmented 54 % 38-[address] [place] [address] [phone] Band Neutrophil 3 % 0-8 Lymphocyte 28 % 25-47 Monocyte 13 % 0-13 Eosinophil 2 % 0-6 Absolute Neutrophil Count 2.5 RBC Morphology NORMAL Laboratory test 04/03/2009 [facility] CPK (Creatine 367 U/L High 0-[address] Kinase) [place], [place] [id number] [phone] Comp Metabolic 03/01/2009 [facility] Sodium 139 135-[address] mmol/L [place], [place] [id number] [phone] Potassium 4.7 mmol/L 3.5-5.0 Chloride 106 mmol/L 101-111 Co2 (Carbon Dioxide) 29.0 mmol/L 22-32 Anion Gap 4.0 mmol/L 2-11 73 Glucose 93 mg/dL 70-100 74 BUN 12 mg/dL 6-24 Creatinine 1.20 mg/dL 0.50-1.40 One Over Creatinine 0.80 BUN/Creatinine Ratio 10.0 8-20 Calcium 9.2 mg/dL 8.1-9.9 75 Total Protein 7.0 GM/DL 6.2-8.1 Albumin 3.9 GM/DL 3.6-5.4 Globulin 3.1 GM/DL 2-4 Albumin/Globulin Ratio 1.3 1-3 Bilirubin Total 1.0 mg/dL 0.4-1.5 76 Alkaline Phosphatase 63 U/L 39-117 Alt (SGPT) 26 U/L 17-63 Ast (Sgot) 29 U/L 12-42 eGFR Non- 68.1 > 60 eGFR 82.4 > 60 77 Lipid Profile 03/01/2009 [facility] Triglyceride 118 mg/dL 40 -200 (Trig/Chol/HDL) [address] [place], [place] [id number] [phone] Cholesterol 225 mg/dL High Less Than 200 78 High Density Lipoprotein 50 mg/dL 40-60 79 Cholesterol/HDL Ratio 4.50 AVERAGE 1-4.97 Low Density Lipoprotein 151 mg/dL High Less Than 100 80 Laboratory test 03/01/2009 [facility] CPK (Creatine 443 U/L High 0-[address] Kinase) [place] [address] [phone] CBC With 03/01/2009 [facility] White Blood 5.1 CUMM 4.8-10.8 Electronic Diff [address] [place] [place] [address] [phone] Red Cell Count 4.99 CUMM 4.6-6.2 Hemoglobin 15.1 g/dL 14.0-18.0 Hematocrit 45 % 42-52 Mean Corpuscular Volume 90 um3 80-94 Mean Corpuscular Hemoglob 30 pg 27-31 Mean Corpuscular HGB Cone 34 g/dL 32-36 Redcell Distribution WDTH 14 % 10.5-15 Platelet Count 205 CUMM 150-450 Mean Platelet Volume 8.0 um3 7.4-10.4 Gran % 42.8 % 38-83 Lymph % 41.5 % 25-47 Mononuclear % 11.4 % High 1-9 Eosinophil % 3.5 % 0-6 Basophil % 0.8 % 0-2 Abs Lymphs 2.1 1.0-4.8 Abs Mononuclear 0.6 0-0.8 Absolute Neutrophil Count 2.2 1.5-7.7 Abs Eosinophils 0.2 0-0.6 Abs Basophils 0 0-0.2 Laboratory test 03/01/2009 [facility] TSH 2.55 MIU/ML 0.34- 5.60 finding [address] [place] [address] [phone] Lipid Profile 11/19/2007 [facility] Triglyceride 115 mg/dL 40 -200 (Trig/Chol/HDL) [address] [place] [address] [phone] Cholesterol 235 mg/dL High Less Than 200 81 High Density Lipoprotein 49 mg/dL 40-60 82 Cholesterol/HDL Ratio 4.80 AVERAGE 1-4.97 Low Density Lipoprotein 163 mg/dL High Less Than 100 83 Comp Metabolic Panel 11/19/2007 [facility] Sodium 140 mmol/L 135-145 [address] [place] [address] [phone] Potassium 4.3 mmol/L 3.5-5.0 Chloride 107 mmol/L 101-111 Co2 (Carbon Dioxide) 28.0 mmol/L 22-32 Anion Gap 5.0 mmol/L 2-11 84 Glucose 91 mg/dL 70-100 85 BUN 11 mg/dL 6-24 Creatinine 1.4 mg/dL 0.5-1.4 One Over Creatinine 0.71 BUN/Creatinine Ratio 7.9 Low 8-20 Calcium 9.2 mg/dL 8.1-9.9 86 Total Protein 7.5 GM/DL 6.2-8.1 Albumin 3.7 GM/DL 3.6-5.4 Globulin 3.8 GM/DL 2-4 Albumin/Globulin Ratio 1.0 1-3 Bilirubin Total 2.0 mg/dL High 0.4-1.5 Alkaline Phosphatase 66 U/L 39-117 Alt (SGPT) 66 U/L High 17-63 Ast (Sgot) 42 U/L 12-42 Laboratory test 02/06/2006 [facility] CPK (Creatine 366 U/L High 0-200 [address] Kinase) [place], [place] [id number] [phone] Lipid Profile 02/06/2006 [facility] Cholesterol 216 High Less Than 88 (Trig/Chol/HDL) [address] mg/dL [address] [place] [address] [phone] Triglyceride 58 mg/dL 40-200 High Density Lipoprotein 46 mg/dL 40-60 Low Density Lipoprotein 158 mg/dL High Less Than 100 89 Cholesterol/HDL Ratio 4.70 AVERAGE 1-4.97 Comp Metabolic Panel 02/06/2006 [facility] One Over Creatinine 0.[address] [place] [address] [phone] Anion Gap 4.0 mmol/L 2-11 90 Albumin/Globulin Ratio 1.5 1-3 Albumin 4.0 GM/DL 3.6-5.4 Alkaline Phosphatase 73 U/L 39-117 Alt (SGPT) 27 U/L 17-63 Ast (Sgot) 26 U/L 12-42 BUN 10 mg/dL 6-24 Calcium 9.4 mg/dL 8.7-10.2 Chloride 107 mmol/L 101-111 Co2 (Carbon Dioxide) 31.0 mmol/L 22-32 Globulin 2.6 GM/DL 2-4 Glucose 97 mg/dL 70-105 Potassium 4.1 mmol/L 3.5-5.0 Sodium 142 mmol/L 135-145 Bilirubin Total 0.8 mg/dL 0.4-1.5 Total Protein 6.6 GM/DL 6.2-8.1 BUN/Creatinine Ratio 7.7 Low 8-20 Creatinine 1.3 mg/dL 0.5-1.4 1 SEE RESULT BELOW Name: SHANIQUE SALAZAR : [address]: Henny Pack MD Acct: [id number] Unit: [id number] AGE: 57 [facility] Re[facility]/22[facility]18 SEX: M Status: REG REF SPEC: [id number] GIULIA: 04/22/18 [facility] DR: Henny Pack MD REQ: [id number] RECD: 04/22/18 STATUS: PHILIP CASTILLO DR: Neville Latham MD _ SOURCE: URINE SPDESC: ORDERED: Urine Culture Procedure Result Reported Site Urine Culture Final 04/23/18- 1237 ML No Growth (<1,000 CFU/mL) * ML - Main Lab . END OF REPORT DEPARTMENT OF PATHOLOGY, [address] [place] [id number] Jarrett Guardado M.D. Director [facility] # [id number] 2 Because ethnic data is not always readily available, this report includes an eGFR for both -Americans and non- Americans. The National Kidney Disease Education Program (NKDEP) does not endorse the use of the MDRD equation for patients that are not between the ages of 18 and 70, are , have extremes of body size, muscle mass, or nutritional status, or are non- or non-. According to the National Kidney Foundation, irrespective of diagnosis, the stage of the disease is based on the level of kidney function: Stage Description GFR(mL/min/1.73 m(2)) 1 Kidney damage with normal or decreased GFR 90 2 Kidney damage with mild decrease in GFR 60-89 3 Moderate decrease in GFR 30-59 4 Severe decrease in GFR 15-29 5 Kidney failure <15 (or dialysis) 3 Negative for cANCA and pANCA patterns by immunofluorescence. ADDITIONAL INFORMATION This test was developed and its performance characteristics determined by [facility] in a manner consistent with CLIA requirements. This test has not been cleared or approved by the U.S. Food and Drug Administration. Test Performed by: [facility] [address] [place] [id number] 4 REFERENCE VALUE <30.0 (Negative) Test Performed by: [place] [address] 5 REFERENCE VALUE <1.0 (Negative) Test Performed by: [place] [address] 6 Therapeutic target for the treatment of diabetes mellitus patients is <7% HBA1C, and in selective patients <6.0%. Please refer to [place] [employer] diabetic care guidelines for further information. 7 Test Performed by: [facility] [address] [place] [address] 8 REFERENCE VALUE <=1.0 (Negative) Test Performed by: [place] [address] 9 *Ascorbic acid is present which may interfere with detection of blood. 10 Class 0 (Negative <0.35) Test Performed by: [place] [address] 11 Class 0 (Negative <0.35) Test Performed by: [place] [address] 12 Class 0 (Negative <0.35) Test Performed by: [place] [address] 13 Class 0 (Negative <0.35) Test Performed by: [place] [address] 14 Class 0 (Negative <0.35) Test Performed by: [place] [address] 15 Class 0 (Negative <0.35) Test Performed by: [place] [address] 16 Class 0 (Negative <0.35) Test Performed by: [place] [address] 17 Class 0 (Negative <0.35) Test Performed by: [place] [address] 18 Class 0 (Negative <0.35) Test Performed by: [place] [address] 19 Class 0 (Negative <0.35) Test Performed by: [place] [address] 20 Class 0 (Negative <0.35) Test Performed by: [place] [address] 21 Class 0 (Negative <0.35) Test Performed by: [place] [address] 22 Class 0 (Negative <0.35) Test Performed by: [place] [address] 23 Class 0 (Negative <0.35) Test Performed by: [place] [address] 24 Class 0 (Negative <0.35) Test Performed by: [place] [address] 25 Class 0 (Negative <0.35) Test Performed by: [place] [address] 26 Class 0 (Negative <0.35) Test Performed by: [place] [address] 27 Class 0 (Negative <0.35) Test Performed by: [place] [address] 28 Class 0 (Negative <0.35) Test Performed by: [place] [address] 29 Class 0 (Negative <0.35) Test Performed by: [place] [address] 30 Class 0 (Negative <0.35) Test Performed by: [place] [address] 31 Class 0 (Negative <0.35) Test Performed by: [place] [address] 32 Class 0 (Negative <0.35) Test Performed by: [facility] [address] 33 Class 0 (Negative <0.35) Test Performed by: [facility] [address] 34 Test Performed by: [place] [address] 35 Test Result Flag Unit RefValue Mugwort, IgE <0.35 kU/L Class 0 (Negative <0.35) Test Performed by: [place] [address] 36 do not work out for 24-48 hours prior 37 cc pmd in 2 weeks Copy Result to: ORLANDO BRANCH ([id number]) 38 Because ethnic data is not always readily available, this report includes an eGFR for both -Americans and non- Americans. The National Kidney Disease Education Program (NKDEP) does not endorse the use of the MDRD equation for patients that are not between the ages of 18 and 70, are , have extremes of body size, muscle mass, or nutritional status, or are non- or non-. According to the National Kidney Foundation, irrespective of diagnosis, the stage of the disease is based on the level of kidney function: Stage Description GFR(mL/min/1.73 m(2)) 1 Kidney damage with normal or decreased GFR 90 2 Kidney damage with mild decrease in GFR 60-89 3 Moderate decrease in GFR 30-59 4 Severe decrease in GFR 15-29 5 Kidney failure <15 (or dialysis) 39 cc pmd in 2 weeks Copy Result to: ORLANDO BRANCH ([id number]) 40 Acute inflammation: >10.00 41 cc pmd in 2 weeks Copy Result to: ORLANDO BRANCH ([id number]) 42 Performed by [facility], [address] [place] [id number] [email or web address], Vince Lay MD - Lab. Director Test Performed by: [facility] [address] [place] [address] 43 <1:80 (Negative) REFERENCE VALUE <1:80 (Negative) Test Performed by: [address] [address] 44 Because ethnic data is not always readily available, this report includes an eGFR for both -Americans and non- Americans. The National Kidney Disease Education Program (NKDEP) does not endorse the use of the MDRD equation for patients that are not between the ages of 18 and 70, are , have extremes of body size, muscle mass, or nutritional status, or are non- or non-. According to the National Kidney Foundation, irrespective of diagnosis, the stage of the disease is based on the level of kidney function: Stage Description GFR(mL/min/1.73 m(2)) 1 Kidney damage with normal or decreased GFR 90 2 Kidney damage with mild decrease in GFR 60-89 3 Moderate decrease in GFR 30-59 4 Severe decrease in GFR 15-29 5 Kidney failure <15 (or dialysis) 45 FASTING cc pmd 46 FASTING cc pmd 47 Desirable <150 Borderline high 150-199 High 200-499 Very High >500 48 Desirable <200 Borderline high 200-239 High >239 49 Low <40 Desirable: 40-60 High: >60 50 Desirable: <100 mg/dL Near Optimal: 100-129 mg/dL Borderline High: 130-159 mg/dL High: 160-189 mg/dL Very High: >189 mg/dL 51 Because ethnic data is not always readily available, this report includes an eGFR for both -Americans and non- Americans. The National Kidney Disease Education Program (NKDEP) does not endorse the use of the MDRD equation for patients that are not between the ages of 18 and 70, are , have extremes of body size, muscle mass, or nutritional status, or are non- or non-. According to the National Kidney Foundation, irrespective of diagnosis, the stage of the disease is based on the level of kidney function: Stage Description GFR(mL/min/1.73 m(2)) 1 Kidney damage with normal or decreased GFR 90 2 Kidney damage with mild decrease in GFR 60-89 3 Moderate decrease in GFR 30-59 4 Severe decrease in GFR 15-29 5 Kidney failure <15 (or dialysis) 52 FASTING cc pmd 53 Therapeutic target for the treatment of diabetes Mellitus patients is <7% HBA1C, and in selective patients <6.0%.Please refer to [place] [employer] Diabetic care guidelines for further information. 54 Because ethnic data is not always readily available, this report includes an eGFR for both -Americans and non- Americans. The National Kidney Disease Education Program (NKDEP) does not endorse the use of the MDRD equation for patients that are not between the ages of 18 and 70, are , have extremes of body size, muscle mass, or nutritional status, or are non- or non-. According to the National Kidney Foundation, irrespective of diagnosis, the stage of the disease is based on the level of kidney function: Stage Description GFR(mL/min/1.73 m(2)) 1 Kidney damage with normal or decreased GFR 90 2 Kidney damage with mild decrease in GFR 60-89 3 Moderate decrease in GFR 30-59 4 Severe decrease in GFR 15-29 5 Kidney failure <15 (or dialysis) 55 cc pmd in 1 m 56 cc pmd in 1 m 57 Desirable <150 Borderline high 150-199 High 200-499 Very High >500 58 Desirable <200 Borderline high 200-239 High >239 59 Low <40 Desirable: 40-60 High: >60 60 Desirable: <100 mg/dL Near Optimal: 100-129 mg/dL Borderline High: 130-159 mg/dL High: 160-189 mg/dL Very High: >189 mg/dL 61 Because ethnic data is not always readily available, this report includes an eGFR for both -Americans and non- Americans. The National Kidney Disease Education Program (NKDEP) does not endorse the use of the MDRD equation for patients that are not between the ages of 18 and 70, are , have extremes of body size, muscle mass, or nutritional status, or are non- or non-. According to the National Kidney Foundation, irrespective of diagnosis, the stage of the disease is based on the level of kidney function: Stage Description GFR(mL/min/1.73 m(2)) 1 Kidney damage with normal or decreased GFR 90 2 Kidney damage with mild decrease in GFR 60-89 3 Moderate decrease in GFR 30-59 4 Severe decrease in GFR 15-29 5 Kidney failure <15 (or dialysis) 62 fsting cc pmd 63 HDL Interpretation: Undesirable: High Risk: Less than 40 MG/DL Desirable: Low Risk: Greater than 60 MG/DL 64 LDL Interpretation: Low Risk Optimal Level: LDL Less than 100 MG/DL Near or Above Optimal: LDL 100-129 MG/DL Borderline High Risk: LDL 130-159 MG/DL High Risk: LDL 160-189 MG/DL Very High Risk: LDL Greater than 189 MG/DL 65 Because ethnic data is not always readily available, this report includes an eGFR for both -Americans and non- Americans. The National Kidney Disease Education Program (NKDEP) does not endorse the use of the MDRD equation for patients that are not between the ages of 18 and 70, are , have extremes of body size, muscle mass, or nutritional status, or are non- or non-. According to the National [employer], irrespective of diagnosis, the stage of the disease is based on the level of kidney function: Stage Description GFR(mL/min/1.73 m(2)) 1 Kidney damage with normal or decreased GFR 90 2 Kidney damage with mild decrease in GFR 60-89 3 Moderate decrease in GFR 30-59 4 Severe decrease in GFR 15-29 5 Kidney failure <15 (or dialysis) 66 Anion gap measurement may be of limited value in the presence of any alkalosis, especially in a combined acid base disorder. . 67 Because ethnic data is not always readily available, this report includes an eGFR for both -Americans and non- Americans. The National Kidney Disease Education Program (NKDEP) does not endorse the use of the MDRD equation for patients that are not between the ages of 18 and 70, are , have extremes of body size, muscle mass, or nutritional status, or are non- or non-. According to the National Kid[employer] Foundation, irrespective of diagnosis, the stage of the disease is based on the level of kidney function: Stage Description GFR(mL/min/1.73 m(2)) 1 Kidney damage with normal or decreased GFR 90 2 Kidney damage with mild decrease in GFR 60-89 3 Moderate decrease in GFR 30-59 4 Severe decrease in GFR 15-29 5 Kidney failure <15 (or dialysis) 68 Anion gap measurement may be of limited value in the presence of any alkalosis, especially in a combined acid base disorder. . 69 Note change in reference range as of 11/11/07. The change was based on recommendations from the [place]. 70 Please note change in reference range effective 07 . 71 Because ethnic data is not always readily available, this report includes an eGFR for both -Americans and non- Americans. The National Kidney Disease Education Program (NKDEP) does not endorse the use of the MDRD equation for patients that are not between the ages of 18 and 70, are , have extremes of body size, muscle mass, or nutritional status, or are non- or non-. According to the National Kid[employer] Foundation, irrespective of diagnosis, the stage of the disease is based on the level of kidney function: Stage Description GFR(mL/min/1.73 m(2)) 1 Kidney damage with normal or decreased GFR 90 2 Kidney damage with mild decrease in GFR 60-89 3 Moderate decrease in GFR 30-59 4 Severe decrease in GFR 15-29 5 Kidney failure <15 (or dialysis) 72 Monocytosis % 73 Anion gap measurement may be of limited value in the presence of any alkalosis, especially in a combined acid base disorder. . 74 Note change in reference range as of 11/11/07. The change was based on recommendations from the [place]. 75 Please note change in reference range effective 07 . 76 A metabolite of Naproxen, O-desmethylnaproxen, has been shown to interfere with the Jendrassik-Isabel method for measuring total bilirubin. Samples from patients who have taken Naproxen have shown spurious elevation in total bilirubin levels. 77 Because ethnic data is not always readily available, this report includes an eGFR for both -Americans and non- Americans. The National Kidney Disease Education Program (NKDEP) does not endorse the use of the MDRD equation for patients that are not between the ages of 18 and 70, are , have extremes of body size, muscle mass, or nutritional status, or are non- or non-. According to the National Kidney Foundation, irrespective of diagnosis, the stage of the disease is based on the level of kidney function: Stage Description GFR(mL/min/1.73 m(2)) 1 Kidney damage with normal or decreased GFR 90 2 Kidney damage with mild decrease in GFR 60-89 3 Moderate decrease in GFR 30-59 4 Severe decrease in GFR 15-29 5 Kidney failure <15 (or dialysis) 78 CHOLESTEROL INTERPRETATION: Desirable: Less than 200 MG/DL Borderline-High Risk: 200-239 MG/DL High-Risk: 240 MG/DL and over 79 HDL INTERPRETATION: Undesirable: High Risk: Less than 40 MG/DL Desirable: Low Risk: Greater than 60 MG/DL 80 LDL INTERPRETATION: Low Risk Optimal Level: LDL Less than 100 MG/DL Near or Above Optimal: LDL 100-129 MG/DL Borderline High Risk: LDL 130-159 MG/DL High Risk: LDL 160-189 MG/DL Very High Risk: LDL Greater than 189 MG/DL 81 CHOLESTEROL INTERPRETATION: Desirable: Less than 200 MG/DL Borderline-High Risk: 200-239 MG/DL High-Risk: 240 MG/DL and over 82 HDL INTERPRETATION: Undesirable: High Risk: Less than 40 MG/DL Desirable: Low Risk: Greater than 60 MG/DL 83 LDL INTERPRETATION: Low Risk Optimal Level: LDL Less than 100 MG/DL Near or Above Optimal: LDL 100-129 MG/DL Borderline High Risk: LDL 130-159 MG/DL High Risk: LDL 160-189 MG/DL Very High Risk: LDL Greater than 189 MG/DL 84 Anion gap measurement may be of limited value in the presence of any alkalosis, especially in a combined acid base disorder. . 85 Note change in reference range as of 11/11/07. The change was based on recommendations from the [place]. 86 Please note change in reference range effective 07 . 87 FASTING 88 Classification: Borderline High . 89 CALCULATED LDL APPROXIMATES THE VALUE OF A DIRECT LDL MEASUREMENT. Classification: Borderline High . 90 Anion gap measurement may be of limited value in the presence of any alkalosis, especially in a combined acid base disorder. . Procedures Date Code Description Status 06/29/2018 43663 Amb.BP Monitor/Phys Interp&Report Completed 01/12/2018 95246 EKG Tracing & Interpretation Completed 12/03/2017 28894 Amb.BP Monitor/Phys Interp&Report Completed 09/30/2017 71901 Event Monitor/Phys Review/Interp. Completed 09/22/2017 83379 EKG Tracing & Interpretation Completed 04/22/2017 02535 EKG Tracing & Interpretation Completed 01/28/2017 39551 EKG Tracing & Interpretation Completed 10/07/2016 49092 EKG Tracing & Interpretation Completed 06/25/2016 19748 ECHO Transthoracic, Real-Time 2D With Doppler And Color Completed Flow 05/29/2016 56952 Holter Monitor Review (24 hr)dr review & interp only Completed 05/27/2016 26398 ECG Monitor/Recording W/Visual Superimposition Scanning Completed 04/22/2016 38861 Holter Monitor Review (24 hr)dr review & interp only Completed 04/18/2016 35984 ECG Monitor/Recording W/Visual Superimposition Scanning Completed 04/17/2016 02632 EKG Tracing & Interpretation Completed 07/12/2015 07411 EKG Tracing & Interpretation Completed 10/17/2014 51431 EKG Tracing & Interpretation Completed 01/26/2014 58255 EKG Tracing & Interpretation Completed 07/25/2013 12149 EKG Tracing & Interpretation Completed 01/25/2013 05131 EKG Tracing & Interpretation Completed 01/12/2013 67625 ECHO Stress Test Incl Perf Contiuous ekg Monitoring W/Phys Completed Superv 01/04/2013 87532 Holter Monitor Review (24 hr)dr review & interp only Completed 01/03/2013 91668 EKG Tracing & Interpretation Completed 07/09/2012 71845 EKG Tracing & Interpretation Completed 06/22/2012 03043 Holter Monitor Review (24 hr) review & interp only Completed 11/12/2011 44713 EKG Tracing & Interpretation Completed 05/02/2011 96786 EKG Tracing & Interpretation Completed 04/24/2011 28733 EKG Tracing & Interpretation Completed 03/27/2011 79223 Holter Monitoring 24 HR New Completed 03/10/2011 74499 EKG Tracing & Interpretation Completed 11/27/2009 92213 EKG Tracing & Interpretation Completed 07/24/2009 57829 EKG Tracing & Interpretation Completed 04/18/2009 80074 ECHO Transthoracic, Real-Time 2D With Doppler And Color Completed Flow 04/12/2009 85106 EKG Tracing & Interpretation Completed 02/27/2009 00422 EKG Tracing & Interpretation Completed 01/12/2008 37851 EKG Tracing & Interpretation Completed 10/19/2007 34829 EKG Tracing & Interpretation Completed 06/02/2007 97140 EKG Tracing & Interpretation Completed 06/02/2007 50377 EKG Tracing & Interpretation Completed 12/11/2006 56131 Echocardiogram Completed 12/11/2006 05896 Echocardiogram Completed 12/11/2006 93535 Pulse Doppler & Continuous Wave Completed 12/11/2006 06726 Pulse Doppler & Continuous Wave Completed 12/11/2006 35141 Pulse Doppler & Continuous Wave Completed 12/11/2006 60127 Color Doppler Completed 12/11/2006 38276 Color Doppler Completed 12/11/2006 20377 Color Doppler Completed 05/22/2006 02819 EKG Tracing & Interpretation Completed 05/22/2006 04214 EKG Tracing & Interpretation Completed 12/31/2005 17944 Holter Monitor Interpretation Completed 12/31/2005 97690 Holter Monitor Interpretation Completed 12/12/2005 51254 EKG Tracing & Interpretation Completed 12/01/2005 90523 Left Heart Catheterization Completed 12/01/2005 08044 Inj Proc LFT Vent/LFT Atrl Angio Completed 12/01/2005 85347 Inj Proc LFT Vent/LFT Atrl Angio Completed 12/01/2005 29196 Coronary Angiography Completed 12/01/2005 51304 S/I/R Inj Proc Vent And Or Atrial Completed 12/01/2005 30257 S/I/R Inj Proc Vent And Or Atrial Completed 12/01/2005 58411 Selective Coronary Angioplasty Completed 11/26/2005 24000 EKG Tracing & Interpretation Completed 09/16/2005 29571 ECHO/Stress Completed 09/16/2005 73914 ECHO/Stress Completed 09/16/2005 84378 Stress Test Completed 09/16/2005 91887 Stress Test Completed 09/10/2005 77361 Color Flow Doppler/Interp & Reprt Completed 09/10/2005 26319 Doppler ECHO Limited Or F/U Hosp Completed 09/10/2005 76018 Echocardiogram, Limited Study Completed 09/10/2005 01552 Echocardiogram, Limited Study Completed 11/13/2003 98533 ECHO/Stress Completed 11/13/2003 64624 Stress Test Completed Encounters Type Date Location Provider Dx Diagnosis Office Visit 04/29/2018 [facility] Nurse Visit cc I10 Essential ( primary) 1:00p hypertension Office Visit 04/21/2018 [facility] Henny R80.1 Persistent 11:00a MD Ramone proteinuria, unspecified I10 Essential (primary) hypertension Office Visit 01/12/2018 [place] Neville Moore I44.0 Atrioventricular 9:00a Cardiology Yolie Almaguer block, first degree R94.31 Abnormal electrocardiogram [ECG] [EKG] I10 Essential (primary) hypertension I49.3 Ventricular premature depolarization Office Visit 09/22/2017 3:30p [facility] Sabina S. I10 Essential ( primary) Of [facility] Kevin, N.P. hypertension R00.2 Palpitations I49.3 Ventricular premature depolarization Office Visit 07/31/2017 10:00a [facility] G47.33 Obstructive sleep Sleep Services Of MD Jaquelin apnea (adult) [facility] (pediatric) K21.9 Gastro-esophageal reflux disease without esophagitis E66.09 Other obesity due to excess calories Z68.32 Body mass index (BMI) 32.0-32.9, adult Office Visit 07/10/2017 8:30a [facility] Sabina S. I10 Essential ( primary) Of [facility] Foster, N.P. hypertension R00.2 Palpitations I49.3 Ventricular premature depolarization Office Visit 06/02/2017 2:00p [facility] Sabina S. I10 Essential ( primary) Of [facility] Foster, N.P. hypertension R00.2 Palpitations I49.3 Ventricular premature depolarization K21.9 Gastro-esophageal reflux disease without esophagitis Office Visit 04/22/2017 2:30p [facility] Neville Moore I10 Essential (primary) Yolie Almaguer hypertension R00.2 Palpitations I49.3 Ventricular premature depolarization R55 Syncope and collapse M79.1 Myalgia K21.9 Gastro-esophageal reflux disease without esophagitis Office Visit 02/11/2017 8:30a [facility] Renata Garcia, I10 Essential (primary) Of [facility] PA hypertension R00.2 Palpitations Office Visit 01/28/2017 2:00p [facility] Neville Moore I10 Essential (primary) Yolie Almaguer hypertension I49.3 Ventricular premature depolarization R55 Syncope and collapse R00.2 Palpitations Office Visit 11/07/2016 9:30a [facility] Renata Garcia, I10 Essential (primary) Of [facility] PA hypertension I49.3 Ventricular premature depolarization R55 Syncope and collapse Office Visit 10/07/2016 1:40p [facility] Neville FCarol I10 Essential (primary) Yolie Almaguer hypertension I49.3 Ventricular premature depolarization R00.2 Palpitations R55 Syncope and collapse Office Visit 06/03/2016 9:30a [facility] Of Renata Garcia, 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 I49.3 Ventricular premature depolarization I10 Essential (primary) hypertension Office Visit 04/17/2016 8:40a [facility] Aamir Sun R55 Syncope and Of [facility] Arik, DO FACC collapse I10 Essential (primary) hypertension R73.9 Hyperglycemia, unspecified Office Visit 07/12/2015 9:40a [place] Neville Moore I34.0 Nonrheumatic mitral Cardiology Yolie Almaguer (valve) insufficiency I10 Essential (primary) hypertension R00.2 Palpitations I44.0 Atrioventricular block, first degree Office Visit 10/17/2014 3:00p [facility] Neville Moore 424.0 Mitral Valve Yolie Almaguer Disorder 401.9 Hypertension Unspec 785.1 Palpitations 401.1 Hypertension Benign 272.0 Hypercholesterolemia Pure Office Visit 01/26/2014 3:00p [facility] Neville Moore 401.9 Hypertension Yolie Almaguer Unspec 424.0 Mitral Valve Disorder 785.1 Palpitations 401.1 Hypertension Benign 272.0 Hypercholesterolemia Pure Office Visit 07/25/2013 3:20p [facility] Neville FCarol 785.1 Palpitations Yolie Almaguer 424.0 Mitral Valve Disorder 401.1 Hypertension Benign 272.0 Hypercholesterolemia Pure Office Visit 01/25/2013 3:00p [facility] Neville FCarol 424.0 Mitral Valve Yolie Almaguer Disorder 785.1 Palpitations 401.1 Hypertension Benign Office Visit 01/03/2013 1:00p [facility] Neville FCarol 401.1 Hypertension Yolie Almaguer Benign 785.1 Palpitations Office Visit 07/09/2012 3:00p [facility] Neville F. 424.0 Mitral Valve Yolie Almaguer Disorder 786.50 Pain Chest Unspec 401.1 Hypertension Benign 785.1 Palpitations Office Visit 11/12/2011 3:20p [facility] Neville F. 424.0 Mitral Valve AT [facility] Yolie Almaguer Disorder 786.50 Pain Chest Unspec 401.1 Hypertension Benign 785.1 Palpitations Office Visit 05/02/2011 [place] Lauraer, 786.50 Pain Chest Unspec 2:15p Cardiology N.P. Office Visit 04/24/2011 [place] Neville F. 401.1 Hypertension 9:20a Cardiology Yolie Almaguer Benign 785.1 Palpitations 272.0 Hypercholesterolemia Pure Office Visit 03/10/2011 11:40a [facility] Neville F. 401.1 Hypertension Yolie Almaguer Benign 272.0 Hypercholesterolemia Pure 785.1 Palpitations Office Visit 11/27/2009 4:00p [facility] Neville F. 401.1 Hypertension Yolie Almaguer Benign 272.0 Hypercholesterolemia Pure 785.1 Palpitations Office Visit 07/24/2009 3:20p [facility] Neville F. 401.1 Hypertension Yolie Almaguer Benign 272.0 Hypercholesterolemia Pure 785.1 Palpitations 780.4 Dizziness & Giddiness Office Visit 04/12/2009 10:00a [facility] Neville F. 401.1 Hypertension Yolie Almaguer Benign 785.1 Palpitations Office Visit 02/27/2009 10:20a [facility] Neville F. 401.1 Hypertension Yolie Almaguer Benign 780.4 Dizziness & Giddiness 272.0 Hypercholesterolemia Pure Office Visit 01/12/2008 2:40p [facility] Neville F. 401.1 Hypertension Yolie Almaguer Benign 785.1 Palpitations 780.4 Dizziness & Giddiness Office Visit 10/19/2007 1:40p [facility] Neville F. 785.1 Palpitations Yolie Almaguer 401.1 Hypertension Benign 272.0 Hypercholesterolemia Pure Office Visit 06/02/2007 3:20p [facility] Neville F. 785.1 Palpitations Yolie Almaguer 427.69 Premature Beats Other 272.0 Hypercholesterolemia Pure Office Visit 12/01/2006 3:40p [facility] Neville F. 427.69 Premature Beats Yolie Almaguer Other 401.1 Hypertension Benign 785.1 Palpitations 272.4 Hyperlipidemia Other Unspec Office Visit 07/13/2006 3:20p [facility] Neville F. 427.69 Premature Beats Yolie Almaguer Other 401.1 Hypertension Benign 272.0 Hypercholesterolemia Pure Office Visit 05/22/2006 3:40p [facility] Neville F. 427.69 Premature Beats Yolie Almaguer Other 786.50 Pain Chest Unspec 785.1 Palpitations 401.1 Hypertension Benign Office Visit 01/07/2006 3:20p [facility] Neville F. 785.1 Palpitations Dominique Almaguer. Office Visit 12/18/2005 10:00a [facility] Neville F. 401.1 Hypertension Yolie Almaguer Benign 786.50 Pain Chest Unspec 272.0 Hypercholesterolemia Pure Office Visit 12/12/2005 10:00a [facility] Neville F. 786.50 Pain Chest Yolie Almaguer Unspec 401.0 Hypertension Malignant Office Visit 12/10/2005 [place] Bryan S. 401.1 Hypertension 3:00p Cardiology Yolie Sung Benign 786.50 Pain Chest Unspec 272.4 Hyperlipidemia Other Unspec Office Visit 11/26/2005 1:40p [facility] Neville F. 786.50 Pain Chest Yolie Almaguer Unspec Office Visit 09/16/2005 3:20p [facility] Neville F. 786.50 Pain Chest Yolie Almaguer Unspec 272.0 Hypercholesterolemia Pure Plan of Treatment Future Appointment(s):08/05/2019 11:00 am - Enriqueta Perla DNP, RN, UNDERWEAR TRIMMER- at [facility]08/10/2018 11:30 am - Henny Pack MD at [facility] [id number]/15/2019 - Enriqueta Perla DNP, RN, UNDERWEAR TRIMMER-[id number] Obstructive sleep apnea (adult) (pediatric)Comments:05/29/11 AHI 15.5/hour, supine 19.9/hour, REM 41.6/hour, cj 87%.On CPAP AHI 2.3/hour ,normalFollow up :1 yearRecommendations:Continue PAP device, Benefitting and compliant with treatment. Recommend with So-clean to use dailyand to wipe off mask to remove secretions intermittently. Remember to replace the filter on the So-clean every 6-months. Cleaning Wipe off mask daily (baby wipe-no scent, or warm water ) Clean mask, tubing, filter, and water chamber weekly in mild no scent dish soap and water. Hang to dry. If youhave any sleepiness while driving you MUST avoid operating a vehicle or machinery. If you have difficulty with your equipment, or need to replace your mask or hoses, please contact your homecare agency. A weight change of 20 pounds or more may have an effect on your equipment; if you are experiencing problems please call for an appointment. If you have any further questions, please call the [facility] at [phone].R38.14 Hypersomnia due to medical conditionRecommendations:If you have any sleepiness while driving you MUST avoid operating a vehicle or machinery.
--- NOTE | 2018-08-30 20:22 | ED ---
Palpitations / Dysrhythmia - HPI Summary HPI Summary: Patient is a 58 y/o M presenting to ED with complaints of palpitations for the past two weeks with a recent exacerbation today. He describes palpitations as "skipping beats" and notes that when palpitations are more severe, he feels SOB and "flushed". Patient is on Diltiazem, 180 MG once daily. 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 Patient notes that he has worn Holter monitors in previous years, stating that "many" palpitations were captured. PMHx of HTN, HLD, asthma. PSHx of cardiac cath in 2005. On triage, pain is denied, nothing is noted to aggravate/alleviate Sx. Home medications and allergies are reviewed. - History of Current Complaint Chief Complaint: EDDysrhythmPalp Time Seen by Provider: 08/30/18 19:59 Hx Obtained From: Patient Onset/Duration: Lasting Weeks - two, Still Present, Worse Since - today Severity Currently: None Character: Skipped Beats Aggravating: Nothing Alleviating: Nothing Associated Signs & Symptoms: Shortness of Breath - Allergy/Home Medications Allergies/Adverse Reactions: Allergies Allergy/AdvReac Type Severity Reaction Status Date / Time alfuzosin [From Uroxatral] Allergy Unknown Verified 08/30/18 19:19 Reaction Details shellfish derived Allergy Itching Verified 08/30/18 19:19 beta renée Allergy Bradycardia Uncoded 08/30/18 19:19 PMH/Surg Hx/FS Hx/Imm Hx Endocrine/Hematology History: Denies: Hx Diabetes, Hx Thyroid Disease Cardiovascular History: Reports: Hx Hypercholesterolemia, Hx Hypertension - ON MEDS Denies: Hx Pacemaker/ICD Respiratory History: Reports: Hx Asthma Denies: Hx Chronic Obstructive Pulmonary Disease (COPD) GI History: Denies: Hx Ulcer History: Denies: Hx Renal Disease Sensory History: Denies: Hx Hearing Aid Neurological History: Reports: Other Neuro Impairments/Disorders - 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 Psychiatric History: Denies: Hx Panic Disorder - Surgical History Surgery Procedure, Year, and Place: CARDIAC CATH- 2005 Infectious Disease History: No Infectious Disease History: Denies: Hx Clostridium Difficile, Hx Hepatitis, Hx Human Immunodeficiency Virus (HIV), Hx Shingles, Hx Tuberculosis, Traveled Outside the [place] in Last 30 Days - Family History Known Family History: Negative: Renal Disease - Social History Alcohol Use: None Hx Substance Use: No Substance Use Type: Reports: None Hx Tobacco Use: No Smoking Status (MU): Never Smoked Tobacco Have You Smoked in the Last Year: No Review of Systems Constitutional: Other - POSITIVE - FEELING "FLUSHED" Positive: Palpitations Positive: Shortness Of Breath All Other Systems Reviewed And Are Negative: Yes Physical Exam - Summary Physical Exam Summary: VITAL SIGNS: Reviewed. GENERAL: Patient is a well-developed and nourished male who is lying comfortable in the stretcher. Patient is not in any acute respiratory distress. HEAD AND FACE: No signs of trauma. No ecchymosis, hematomas or skull depressions. No sinus tenderness. EYES: PERRLA, EOMI x 2, No injected conjunctiva, no nystagmus. EARS: Hearing grossly intact. Ear canals and tympanic membranes are within normal limits. MOUTH: Oropharynx within normal limits. NECK: Supple, trachea is midline, no adenopathy, no JVD, no carotid bruit, no c- spine tenderness, neck with full ROM CHEST: Symmetric, no tenderness at palpation LUNGS: Clear to auscultation bilaterally. No wheezing or crackles. CVS: Regular rate and rhythm, S1 and S2 present, no murmurs or gallops appreciated. ABDOMEN: Soft, non-tender. No signs of distention. No rebound no guarding, and no masses palpated. Bowel sounds are normal. EXTREMITIES: FROM in all major joints, no edema, no cyanosis or clubbing. NEURO: Alert and oriented x 3. No acute neurological deficits. Speech is normal and follows commands. SKIN: Dry and warm Triage Information Reviewed: Yes Vital Signs On Initial Exam: Initial Vitals Temp Pulse Resp BP Pulse Ox 98.8 F 88 16 183/97 97 08/30/18 19:17 08/30/18 19:17 08/30/18 19:17 08/30/18 19:17 08/30/18 19:17 Vital Signs Reviewed: Yes Diagnostics - Vital Signs Vital Signs Temp Pulse Resp BP Pulse Ox 08/30/18 19:17 98.8 F 88 16 183/97 97 - Laboratory Result Diagrams: 08/30/18 21:06 08/30/18 21:06 Lab Statement: Any lab studies that have been ordered have been reviewed, and results considered in the medical decision making process. - EKG 1929 Cardiac Rate: NL - rate of 91 BPM EKG Rhythm: Sinus Rhythm Summary of EKG Findings: EKG showed sinus rhythm with rate of 91 BPM, normal axis, normal interval, no ischemic changes. Re-Evaluation - Re-Evaluation First Eval Re-Evaluation Time: 22:23 Comment: Results of labs and tests were discussed with the patient. Patient will be discharged to home and follow up with PCP within three days. Strict return precautions were given. Patient is agreeable with this plan. Course/Dx - Course Assessment/Plan: Patient is a 58 y/o M presenting to ED with complaints of palpitations for the past two weeks with a recent exacerbation today. He describes palpitations as "skipping beats" and notes that when palpitations are more severe, he feels SOB and "flushed". Patient is on Diltiazem, 180 MG once daily. 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 Patient notes that he has worn Holter monitors in previous years, stating that "many" palpitations were captured. PMHx of HTN, HLD, asthma. PSHx of cardiac cath in 2005. Physical exam is unremarkable. EKG showed sinus rhythm with rate of 91 BPM, normal axis, normal interval, no ischemic changes. Labs showed Hgb 13.8, Hct 41, creatinine 1.37, glucose 106, trop 0, TSH 3.12. Results of labs and tests were discussed with the patient. Patient will be discharged to home and follow up with PCP within three days. Strict return precautions were given. Patient is agreeable with this plan. - Diagnoses Provider Diagnoses: Palpitations Discharge - Sign-Out/Discharge Documenting (check all that apply): Patient Departure - discharge Patient Received Moderate/Deep Sedation with Procedure: No - Discharge Plan Condition: Stable Disposition: HOME Patient Education Materials: Heart Palpitations (ED) Referrals: Orlando Branch MD [Primary Care Provider] - 3 Days Additional Instructions: PLEASE RETURN TO THE ED IMMEDIATELY FOR WORSENING OR CONCERNING SYMPTOMS. FOLLOW UP WITH YOUR PRIMARY CARE PHYSICIAN WITHIN THREE DAYS. - Attestation Statements Document Initiated by Scribe: Yes Documenting Scribe: RAINE CRAFT Provider For Whom Scribe is Documenting (Include Credential): FRANCOIS CARTER MD Scribe Attestation: RAINE Pineda, scribed for FRANCOIS CARTER MD on 08/30/18 at 2237. Status of Scribe Document: Ready
[2018-08-30 21:13] LABS: ABS Eosinophils 0.1 10^3/ul (0-0.6); ABS Lymphocytes 1.5 10^3/ul (1.0-4.8); ABS Monocytes 0.6 10^3/ul (0-0.8); ABS Neutrophils 3.8 10^3/ul (1.5-7.7); Eosinophil % 1.9 %; Hematocrit 41 % (42-52); Hemoglobin 13.8 g/dL (14.0-18.0); Lymphocyte % 25.1 %; Mean Corpuscular HGB Conc 34 g/dL (31-36); Mean Corpuscular Hemoglobin 30 pg (27-31); Mean Corpuscular Volume 88 fL (80-94); Mean Platelet Volume 7.7 fL (7.4-10.4); Nucleated Red Blood Cells % 0.1; Platelet Count 198 10^3/uL (150-450); Red Blood Count 4.63 10^6 /uL (4.18-5.48); Red Cell Distribution Width 14 % (10-15); White Blood Count 6.1 10^3/uL (3.5-10.8)
[2018-08-30 21:30] LABS: Albumin 4.2 g/dL (3.2-5.2); Albumin/Globulin Ratio 1.4 (1-3); BUN/Creatinine Ratio 8.8 (8-20); Calcium 9.5 mg/dL (8.6-10.3); EGFR African American 64.1 (>60); Magnesium 2.3 mg/dL (1.9-2.7); Potassium 4.2 mmol/L (3.5-5.0); Total Bilirubin 0.5 mg/dL (0.2-1.0); Total Protein 7.2 g/dL (6.4-8.9)
[2018-08-30 21:55] LABS: TSH (Thyroid Stimulating Horm) 3.12 mcIU/mL (0.34-5.60)
[2018-08-30 22:47] VITALS: BP 133/73
== END 2018-08-30 22:48 | disposition home or self-care (01) ==
LOC: ED 19:16
DX: R00.2 Palpitations (principal); R06.02 Shortness of breath; I10 Essential (primary) hypertension; Z98.61 Coronary angioplasty status; Z88.8 Allergy status to other drugs, medicaments and biological substances; Z91.013 Allergy to seafood
CPT/HCPCS: 36415; 80053; 83735; 84443; 84484; 85025; 93005; 99283

== ENCOUNTER 2019-03-20 07:33 | Emergency (ER) | payer OTHER ==
--- OUTSIDE RECORDS SUMMARY | 2019-03-20 07:39 | XMS REPORT | Continuity of Care Document ---
:1960 External Reference #:[id number] Author Name Neville Almaguer M.D. (transmitted by agent of provider Raheem Ellis) Address [address] [address] Care Team Providers Name Role Phone Orlando Branch MD - Family Care Team Information Inhalation Therapy Teacher [phone] Medicine Problems Active Problems Provider Date Chest pain Cass Pathak N.PCarol Onset: 05/02/2011 Benign essential hypertension Neville Almaguer M.D. Onset: 01/03/2013 Palpitations Neville Almaguer M.D. Onset: 01/03/2013 Mitral valve disorder Neville Almaguer M.D. Onset: 01/25/2013 Pure hypercholesterolemia Neville Almaguer M.D. Onset: 07/25/2013 Obstructive sleep apnea syndrome Enriqueta Perla DNP, RN, [facility] Onset: Social History Type Date Description Comments Sex Unknown Tobacco Use Start: Unknown Never Smoked Cigarettes Smoking Status Reviewed: 03/09/19 Never Smoked Cigarettes ETOH Use Denies alcohol use Tobacco Use Start: Unknown Patient has never smoked Recreational Drug Use Never Used Drugs Exercise Type/Frequency Negative For Exercises 4 times a week regularly Allergies, Adverse Reactions, Alerts Active Allergies Reaction Severity Comments Date pravachol. fatigue 12/01/2006 [place] shakiness, elevated bps 03/10/2011 Alfuzosin syncope 04/17/2016 Inactive Allergies NKDA 11/26/2005 betablocker shakiness, elevated bps 03/10/2011 Medications Active Medications SIG Qnty Indications Ordering Provider Date Wrist Splint use nightly to 2units G56.02 Michael [facility]vesr, 09[facility]27/2018 [facility] U[facility] tunnel features g56.01 Metoprolol Succinate 1/2 tablet by 30tabs Sabina Brown, 09/17/2018 ER mouth everyday N.P. 25mg Tablets ER 24HR Slow-Mag 2 tabs by mouth 60tabs M60.9 Henny 08/10/2018 71.5-119mg every daily MD Ramone Tablets Olmesartan Medoxomil take 2 tablet by 180tabs Neville Moore 04/09/2018 mouth every day Yolie Almaguer 5mg Tablets Cardizem CD 1 by mouth every 30caps I10 Sabina Brown, 07/31/2017 180mg day N.P. Caps ER 24HR Potassium Chloride 2 by mouth every 180tabs Neville Moore 05/21/2016 ER day Yolie Almaguer 20Meq Tablets ER Vitamin B Complex 1 by mouth every Unknown day Tablets Metformin HCL 1 by mouth twice Unknown 500mg a day Tablets Xanax as Needed Unknown Cialis 1 by mouth every Unknown 5mg Tablets day Pepsid OTC take 1 tablet by Unknown 20mg mouth once per Tablets day Cranberry Peels 1 daily Unknown 100mg Capsule Cpap qhs Unknown Multiple Vitamins 1 po qd Unknown Tablets Calvin Aspirin qd Unknown 81mg Tablets Fish Oil 1 po qd Unknown 1000mg Capsules Coq10 1 po qd 90caps Unknown 100mg Capsules Immunizations Description No Information Available Vital Signs Date Vital Result Comment 03/09/2019 1:28pm Height 74 inches 6'2" Weight 256.50 lb without shoes Heart Rate 64 /min left radial BP Systolic Sitting 132 mmHg Lue, reg cuff BP Diastolic Sitting 84 mmHg Lue, reg cuff BP Systolic Standing 136 mmHg Lue, reg cuff BP Diastolic Standing 86 mmHg Lue, reg cuff BP Systolic Lying Down 117 mmHg la repeat sitting BP Diastolic Lying Down 71 mmHg la repeat sitting BMI (Body Mass Index) 32.9 kg/m2 Ejection Fraction 60%-65% echocardiogram 10/20/2018 12/22/2018 10:09am Height 74 inches 6'2" Weight 268.00 lb Heart Rate 61 /min BP Systolic Sitting 121 mmHg right arm large cuff BP Diastolic Sitting 78 mmHg right arm large cuff O2 % BldC Oximetry 97 % room air BMI (Body Mass Index) 34.4 kg/m2 Results Test Acquired Date Facility Test Result H/L Range Note Microalbumin 24HR 12/22/2018 [facility] Urine Collection 24 hr [address] [place] [address] [phone] Urine Total Volume 1200 mL Ur Microalbumin (mg/L) 88.1 mg/L Urine Microalbumin (mg/24Hr) 105.7 mg/24hr High Less than 30 Urine Microalbumin (mcg/min) 73.4 mcg/min High Less than 20 Potassium 24HR 12/22/2018 [facility] Urine Potassium 41.8 mmol/ L Urine [address] [address] [phone] Urine Potassium/24 Hour 50 mmol/24h Normal 25-125 Total Protein 12/22/2018 [facility] Urine TP 13 mg/dL 24HR Urine [address] [address] [phone] Urine Total Protein/24HR 156 mg/24Hr Normal 0-165 Creatinine Clearance 12/22/2018 [facility] Urine Collection [address] Time [place], [place] [id number] [phone] Urine Total Volume 1200 mL Urine Creatinine Concentration 169.25 mg/dL Creatinine, Serum 1.24 mg/dL High 0.51-0.95 Creatinine Clearance 114 mL/min Normal 97-137 Calcium 24 Hour 12/22/2018 [facility] Urine Calcium 96 mg/24h <250 [address] [place] [address] [phone] Urine Collection Duration 24 h Urine Volume 1200 mL Urine Calcium Conc 8 mg/dL 3 Urine Magnesium 12/22/2018 [facility] Urine Magnesium 108 mg/ 24h 51 - 269 [address] 24HR [place] [address] [phone] Urine Collection Duration 24 h Urine Volume 1200 mL Urine Magnesium mg/dL 9 mg/dL 5 CBC Auto 12/21/2018 [facility] White Blood 5.1 10^3/uL Normal 3.5-10.[address] [place] [address] [phone] Red Blood Count 5.00 10^6/uL Normal 4.18-5.48 Hemoglobin 15.0 g/dL Normal 14.0-18.0 Hematocrit 45 % Normal 42-52 Mean Corpuscular Volume 91 fL Normal 80-94 Mean Corpuscular Hemoglobin 30 pg Normal 27-31 Mean Corpuscular HGB Conc 33 g/dL Normal 31-36 Red Cell Distribution Width 14 % Normal 10-15 Platelet Count 204 10^3/uL Normal 150-450 Mean Platelet Volume 8.4 fL Normal 7.4-10.4 Abs Neutrophils 2.5 10^3/uL Normal 1.5-7.7 Abs Lymphocytes 1.9 10^3/uL Normal 1.0-4.8 Abs Monocytes 0.6 10^3/uL Normal 0-0.8 Abs Eosinophils 0.2 10^3/uL Normal 0-0.6 Abs Basophils 0.0 10^3/uL Normal 0-0.2 Abs Nucleated RBC 0.0 10^3/uL Granulocyte % 48.0 % Lymphocyte % 36.6 % Monocyte % 11.2 % Eosinophil % 3.4 % Basophil % 0.8 % Nucleated Red Blood Cells % 0.5 Laboratory test 12/21/2018 [facility] Urine Magnesium <pending> finding [address] [place] [address] [phone] Magnesium 2.2 mg/dL Normal 1.9-2.7 Creatine Kinase(CK) 460 U/L High 10-223 Laboratory test 12/21/2018 [facility] Calcium 9.2 mg/dL Normal 8.6-10.3 [address] [facility] [place] [address] [phone] Calcium Ionized 1.16 mmol/L Normal 1.16-1.32 Comp Metabolic 12/21/2018 [facility] Sodium 140 mmol/L Normal 135-[address] [place] [address] [phone] Potassium 4.1 mmol/L Normal 3.5-5.0 Chloride 107 mmol/L Normal 101-111 Co2 Carbon Dioxide 27 mmol/L Normal 22-32 Anion Gap 6 mmol/L Normal 2-11 Glucose 94 mg/dL Normal 70-100 Blood Urea Nitrogen 10 mg/dL Normal 6-24 Creatinine 1.24 mg/dL High 0.67-1.17 BUN/Creatinine Ratio 8.1 Normal 8-20 Total Protein 7.3 g/dL Normal 6.4-8.9 Albumin 4.3 g/dL Normal 3.2-5.2 Globulin 3.0 g/dL Normal 2-4 Albumin/Globulin Ratio 1.4 Normal 1-3 Total Bilirubin 0.50 mg/dL Normal 0.2-1.0 Alkaline Phosphatase 71 U/L Normal 34-104 Alt 20 U/L Normal 7-52 Ast 23 U/L Normal 13-39 Egfr Non- 59.5 >60 Egfr 72.0 >60 6 Iron & Iron Binding 12/21/2018 [facility] Iron 106 g/dL Normal 50-212 [address] [place] [address] [phone] Unsaturated Iron Binding < 380 g/dL Total Iron Binding Capacity 395 g/dL Normal 250-450 % Iron Saturation 27 % Normal 15-55 Laboratory test 12/21/2018 [facility] Ferritin 49.6 ng/mL Normal 24-336 finding [address] [place] [address] [phone] Transferrin 282 mg/dL Normal 203-362 1 COLLECTION START 12/21/18 1500 END 12/22/18 0800 2 ADDITIONAL INFORMATION This test has been modified from the dough molder's instructions. Its performance characteristics were determined by [facility] in a manner consistent with CLIA requirements. This test has not been cleared or approved by the U.S. Food and Drug Administration. 3 Test Performed by: [facility] - [address] [address] Traveler Changer: Raoul Donaldson M.D. Ph.D.; CLIA# [id number] 4 ADDITIONAL INFORMATION This test has been modified from the dough molder's instructions. Its performance characteristics were determined by [facility] in a manner consistent with CLIA requirements. This test has not been cleared or approved by the U.S. Food and Drug Administration. 5 Test Performed by: [address] [address] Traveler Changer: Raoul Donaldson M.D. Ph.D.; IA# [id number] 6 Because ethnic data is not always readily [...] 15-29 5 Kidney failure <15 (or dialysis) Procedures Date Code Description Status 03/09/2019 60311 EKG Tracing & Interpretation Completed 10/20/2018 95919 ECHO Transthoracic, Real-Time 2D With Doppler And Color Completed Flow 10/20/2018 72879 ECHO Transthoracic, Real-Time 2D With Doppler And Color Completed Flow 09/13/2018 50341 Holter Monitor Review (24 hr)dr review & interp only Completed 09/09/2018 99693 ECG Monitor/Recording W/Visual Superimposition Scanning Completed Medical Devices Description No Information Available Encounters Type Date Location Provider Dx Diagnosis Office Visit 12/22/2018 [facility] Henny I12.9 Hypertensive chronic 10:00a MD Ramone kidney disease w stg 1-4/unsp chr kdny N18.3 Chronic kidney disease, stage 3 (moderate) Office Visit 10/26/2018 9:30a [facility] Sabina Brown, R00.2 Palpitations Of [facility] N.P. I49.3 Ventricular premature depolarization I10 Essential (primary) hypertension R53.83 Other fatigue Office Visit 10/22/2018 10:00a [facility]ph[facility] Henny N18.3 Chronic kidney MD Ramone disease, stage 3 (moderate) I12.9 Hypertensive chronic kidney disease w stg 1-4/unsp chr kdny D64.9 Anemia, unspecified Office Visit 09/27/2018 4:00p Rheumatology Michael M60.9 Myositis, [facility] Chandler M.D. unspecified G56.02 Carpal tunnel syndrome, left upper limb R20.8 Other disturbances of skin sensation M16.9 Osteoarthritis of hip, unspecified Assessments Date Code Description Provider 03/09/2019 I12.9 Hypertensive chronic kidney disease with Neville Almaguer M.D. stage 1 through stage 4 chronic kidney disease, or unspecified chronic kidney disease 03/09/2019 I49.3 Ventricular premature depolarization Neville Almaguer M.D. 03/09/2019 R00.2 Palpitations Neville Almaguer M.D. 03/09/2019 I10 Essential (primary) hypertension Neville Almaguer M.D. 03/09/2019 M60.9 Myositis, unspecified Neville Almaguer M.D. 12/22/2018 I12.9 Hypertensive chronic kidney disease with Henny Pack MD stage 1 through stage 4 chronic kidney disease, or unspecified chronic kidney disease 12/22/2018 N18.3 Chronic kidney disease, stage 3 (moderate) Henny Pack MD 10/26/2018 R00.2 Palpitations Sabina Brown, N.P. 10/26/2018 I49.3 Ventricular premature depolarization Sabina Brown, N.P. 10/26/2018 I10 Essential (primary) hypertension Sabina Brown N.P. 10/26/2018 R53.83 Other fatigue Sabina Brown, N.P. 10/22/2018 N18.3 Chronic kidney disease, stage 3 (moderate) Henny Pack MD 10/22/2018 I12.9 Hypertensive chronic kidney disease with Henny Pack MD stage 1 through stage 4 chronic kidney disease, or unspecified chronic kidney disease 10/22/2018 D64.9 Anemia, unspecified Henny Pack MD 10/20/2018 R06.00 Dyspnea, unspecified Neville Almaguer M.D. 10/20/2018 R06.00 Dyspnea, unspecified Traveling ECHO 1 10/20/2018 I49.3 ECG: ventricular ectopics Traveling ECHO 1 09/27/2018 M60.9 Myositis, unspecified Michael Chandler M.D. 09/27/2018 G56.02 Carpal tunnel syndrome, left upper limb Michael Chandler M.D. 09/27/2018 R20.8 Other disturbances of skin sensation Michael Chandler M.D. 09/27/2018 M16.9 Osteoarthritis of hip, unspecified Michael Chandler M.D. 09/13/2018 R00.2 Palpitations Neville Almaguer M.D. 09/09/2018 R00.2 Palpitations Nurse Visit IC Plan of Treatment Future Appointment(s):04/27/2019 8:00 am - Ry Parker MD at [facility] Fjubxsgwmg38/13/2020 10:00 am - Michael Chandler M.D. at [facility]08/05/2019 11:00 am - Enriqueta Perla DNP, RN, GASTROENTEROLOGY NURSE- at [facility]03/09/2019 - Neville Almaguer M.D.I12.9 Hypertensive chronic kidney disease with stage 1 through stage 4 chronic kidney disease, or unspecified chronic kidney vglgdpxO98.3 Ventricular premature depolarizationFollow up:ov 8 mR00.2 [id number] Essential (primary) fjcyltvzpqepM51.9 Myositis, unspecified Functional Status Description No Information Available Mental Status Description No Information Available Referrals Description No Information Available
--- OUTSIDE RECORDS SUMMARY | 2019-03-20 07:39 | XMS REPORT | Summary of Care ---
:1960 Author Organization [facility] Address [address] [place] [address] Care Team Providers Name Role Phone Orlando Branch MD Primary Care Provider Reason for Referral Refer to Department Only (Routine) Status Reason Specialty Diagnoses / Referred By Referred To Procedures Contact Contact Authorized Orthopedics Diagnoses Hip pain, chronic, right Monty Villeda MD [address] [place] [address] Reason for Visit Reason Comments Follow Up Chronic right hip pain. Patient states pain comes and goes, gets worse after exercise. PT was okay, but pain still comes back. Injections did what it needed to do, but pain still comes back. Encounter Details Date Type Department Care Team Description 02/21/2019 Office Visit [facility] - Monty Villeda MD Hip pain, chronic, [address] right (Primary Dx) [address] [place] [id number] [place] [address] [phone] Allergies Active Allergy Reactions Severity Noted Date Comments Atenolol Other 01/12/2013 Slow heart rate documented as of this encounter (statuses as of 02/21/2019) Medications Medication Sig Dispensed Refills Start Date End Date Status Diltiazem HCl CR 180 MG Take by mouth. 0 Active Oral CAPSULE SR 24 HR Aspirin 81 MG Oral Tab Take 81 mg by 0 Active mouth. [place]-3 Fatty Acids Take by mouth. 0 Active (FISH OIL) 1000 MG Oral Cap Tamsulosin HCl (FLOMAX) Take 0.4 mg by 0 Active 0.4 MG Oral Cap mouth DAILY. irbesartan (AVAPRO) 150 Take 150 mg by 0 Active MG Oral Tab mouth. documented as of this encounter (statuses as of 02/21/2019) Active Problems Problem Noted Date Hip pain, chronic, right 09/10/2018 Spinal stenosis of lumbar region with neurogenic claudication 10/14/2017 Knee pain, right 04/10/2014 Pain of right heel 02/13/2014 Hand pain, right 02/13/2014 Arm pain 01/12/2013 Lateral epicondylitis of left elbow 01/12/2013 documented as of this encounter (statuses as of 02/21/2019) Social History Tobacco Use Types Packs/Day Years Used Date Never Smoker Smokeless Tobacco: Never Used Alcohol Use Drinks/Week oz/Week Comments No Sex Assigned at Date Recorded Not on file Job Start Date Occupation Industry Not on file Not on file Not on file Travel History Travel Start Travel End No recent travel history available. documented as of this encounter Last Filed Vital Signs Vital Sign Reading Time Taken Comments Blood Pressure 155/98 02/21/2019 2:55 PM EST Pulse 83 02/21/2019 2:55 PM EST Temperature - - Respiratory Rate - - Oxygen Saturation - - Inhaled Oxygen Concentration - - Weight 115.7 kg (255 lb) 02/21/2019 2:55 PM EST Height 188 cm (6' 2") 02/21/2019 2:55 PM EST Body Mass Index 32.74 02/21/2019 2:55 PM EST documented in this encounter Progress Notes Monty Villeda MD - 02/21/2019 2:45 PM EST Name: Casey Salazar : 1960 Date of Service: 02/21/2019 Chief Complaint Patient presents with Follow Up Chronic right hip pain. Patient states pain comes and goes, gets worse after exercise. PT was okay, but pain still comes back. Injections did what it needed to do, but pain still comes back. Patient presents with persistent chronic right hip pain consistent with right hip osteoarthritis. Interestingly, his MRI as well as plain hip x-ray show mild degenerative changes. However he got complete relief with intra-articular injection by Dr. Burrell. 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 A labral tear was not seen on his MRI but he did not have contrast. He now has developed some left groin pain. No back pain. Physical exam shows a healthy-appearing man in no acute distress. Alert and oriented. Hip grossly normal. No point tenderness. Significant groin pain on internal rotation of the right hip as well as the left hip. No pain on external rotation. Grossly neurovascular status bilateral lower extremities intact. Discussion: Discussed alternatives for treatment. Patient not willing to discontinue exercises. Sometime ago, he did discontinue exercises for some time and felt better with respect to symptoms. I discussed patient goals and quality of life issues including exercise. After discussion, I will have him see Dr. Garcia to see if he thinks it is worth doing hip arthroscopy. I also discussed possible total hip replacement but explained that this is quite a significant operation and would have to bealmost a last resort if he feels that he wants to continue his exercise program at this level. ICD-9-CM ICD-10-CM 1. Hip pain, chronic, right 719.45 M25.551 REFER TO ORTHOPEDICS 338.29 G89.29 Author: Monty Villeda MD 02/21/2019 15:13 This record contains sections created with voice recognition software. It has been electronically signed. A reasonable attempt at proofreading has been made. Please call with any questions or corrections. documented in this encounter Plan of Treatment Name Type Priority Associated Diagnoses Order Schedule REFER TO ORTHOPEDICS Referral Routine Hip pain, chronic, right Expected: , Expires: 02/22/2020 Health Maintenance Due Date Last Done Comments DEPRESSION SCREENING 1970 HIV SCREENING 1973 DIABETES SCREENING 1976 LIPID DISORDER SCREENING 1976 HEPATITIS C SCREENING 1998 Colonoscopy 2008 ZOSTER IMMUNIZATION SERIES (1 of 2) 2008 INFLUENZA VACCINE (#1) 2018 HPV IMMUNIZATION SERIES Aged Out No longer eligible based on patient's age to complete this topic MENINGOCOCCAL VACCINE IMM Aged Out No longer eligible based on patient's age to complete this topic PNEUMOCOCCAL 0-64 YRS Aged Out No longer eligible based on patient's age to complete this topic documented as of this encounter Results Not on filedocumented in this encounter Visit Diagnoses Diagnosis Hip pain, chronic, right - Primary documented in this encounter Insurance Payer Benefit Plan / Subscriber ID Effective Dates Phone Address Type Group [employer]CIAL [employer] xxxxxxxxxx 2006-Present [employer] Guarantor Name Account Type Relation to Date of Phone Billing Address Patient Casey Salazar Personal/Famil 1960 [phone] [address] ([address]) [address] [phone] [place], [place] (Work) [id number] documented as of this encounter
[2019-03-20 07:50] VITALS: BP 127/83
--- NOTE | 2019-03-20 08:06 | UC ---
Skin Complaint HPI - HPI Summary HPI Summary: 58-year-old male comes in with a chief complaint of a rash on his chest. He's had for weeks.. It's itchy. He tried a topical was prescribed by an urgent care which did help some overall the rash and the symptoms are getting worse. Feels well otherwise. She's had a similar rash before on his upper chest primarily in the wintertime however several last this long. Rash is on the upper anterior chest and it crosses the midline. - History of Current Complaint Chief Complaint: UCRash Time Seen by Provider: 03/20/19 07:45 Stated Complaint: RASH Pain Intensity: 1 - Allergy/Home Medications Allergies/Adverse Reactions: Allergies Allergy/AdvReac Type Severity Reaction Status Date / Time alfuzosin [From Uroxatral] Allergy Unknown Verified 03/20/19 07:42 Reaction Details shellfish derived Allergy Itching Verified 03/20/19 07:42 beta renée Allergy Bradycardia Uncoded 03/20/19 07:42 Home Medications: Home Medications metFORMIN* [Glucophage 500 MG TAB *] 500 mg PO BID 03/20/19 [History Confirmed 03/20/19] PMH/Surg Hx/FS Hx/Imm Hx Previously Healthy: Yes Endocrine History: Diabetes Cardiovascular History: Hypertension - Surgical History Surgical History: Yes Surgery Procedure, Year, and Place: CARDIAC CATH, clean- 2005. colonoscopy - Family History Known Family History: Negative: Renal Disease - Social History Alcohol Use: None Substance Use Type: None Smoking Status (MU): Never Smoked Tobacco Have You Smoked in the Last Year: No Household Exposure Type: Cigarettes Review of Systems All Other Systems Reviewed And Are Negative: Yes Constitutional: Positive: Negative Skin: Positive: Other - SEE HPI Eyes: Positive: Negative ENT: Positive: Negative Respiratory: Positive: Negative Cardiovascular: Positive: Negative Gastrointestinal: Positive: Negative Motor: Positive: Negative Neurovascular: Positive: Negative Musculoskeletal: Positive: Negative Neurological: Positive: Negative Psychological: Positive: Negative Is Patient Immunocompromised?: No Physical Exam Triage Information Reviewed: Yes Appearance: Well-Appearing, No Pain Distress, Well-Nourished Vital Signs: Initial Vital Signs Temp 98.2 F 03/20/19 07:45 Pulse 70 03/20/19 07:45 Resp 16 03/20/19 07:45 BP 127/83 03/20/19 07:45 Pulse Ox 99 03/20/19 07:45 Vital Signs Reviewed: Yes Eye Exam: Normal Eyes: Positive: Conjunctiva Clear Neck: Positive: Supple Respiratory: Positive: No respiratory distress Musculoskeletal: Positive: Strength Intact, ROM Intact Neurological: Positive: Alert, Muscle Tone Normal Psychological: Positive: Age Appropriate Behavior Skin: Positive: Other - On the upper anterior chest there is a rash that is flat , slightly warm to touch, crosses the midline, it's approximately 20 cm wide by 8 cm height, no drainage, No obvious skin breaks, it blanches. Course/Dx - Course Course Of Treatment: We discussed the various possibilities of the cause of the rash. We are unsure what his last cream was that he used. We'll treat for potential infection and also an allergic cause. Recommended follow-up with dermatology. Reevaluation if worse or any questions or concerns. - Diagnoses Provider Diagnosis: Rash Discharge ED - Sign-Out/Discharge Documenting (check all that apply): Patient Departure All imaging exams completed and their final reports reviewed: No Studies - Discharge Plan Condition: Stable Disposition: HOME Prescriptions: Cephalexin CAP* [Keflex CAP*] 500 mg PO TID #30 cap Clotrimazole 1 applic TOPICAL BID #14 gm Hydrocortisone 1% CREAM* [Hytone Cream 1%*] 1 applic TOPICAL BID #1 tube Patient Education Materials: Acute Rash (ED) Referrals: Orlando Branch MD [Primary Care Provider] - Jennifer Rust MD [Medical Doctor] - Deanna Washington [Medical Doctor] - Danielle Walden MD [Medical Doctor] - Wai Ascencio MD [Medical Doctor] - Additional Instructions: FOLLOW UP WITH DERMATOLOGY. GET REEVALUATED SOONER IF NOT IMPROVED OR WORSE OR ANY QUESTIONS OR CONCERNS. - Billing Disposition and Condition Condition: STABLE Disposition: Home
== END 2019-03-20 08:12 | disposition home or self-care (01) ==
LOC: UCEAST 07:33
DX: R21 Rash and other nonspecific skin eruption (principal); E11.9 Type 2 diabetes mellitus without complications; I10 Essential (primary) hypertension; Z79.84 Long term (current) use of oral hypoglycemic drugs; Z91.013 Allergy to seafood; Z88.8 Allergy status to other drugs, medicaments and biological substances
CPT/HCPCS: 99212; G0463